=== PATIENT | female | born 1970 | race Caucasian/White ===

== ENCOUNTER → 2016-10-08 | Outpatient (CLI) | payer BC ==
--- NOTE | 2016-10-08 09:17 | BD ---
EXAMINATION TYPE: MG DEXA axial skeleton. DATE OF EXAM: 10/08/2016 8:24 AM COMPARISON: NONE CLINICAL HISTORY: Height: 63.5 Weight: 205 FRAX RISK QUESTIONS: Alcohol (3 or more units per day): no Family History (Parent hip fracture): no Glucocorticoids (More than 3mos): no (Ex: prednisone, prednisolone, methylprednisolone, dexamethasone, and hydrocortisone). History of Fracture in Adulthood: yes Secondary Osteoporosis: 1. Type 1 Diabetes: no 2. Hyperthyroidism: no 3. Menopause before 45: no 4. Malnutrition: no 5. Chronic liver disease: no Rheumatoid Arthritis: no Current Tobacco Use: no RISK FACTORS HISTORY OF: History of Fracture: ankle, first fractured about 24 years ago; history of re-fracture Other Fractures since Age 48: n/a Family History of Osteoporosis: unsure Drink Alcohol: yes, occasionally socially Active: yes Diet low in dairy products/other sources of calcium: no Postmenopausal woman: yes, age 44 partial hysterectomy Take estrogen and/or progesterone medications: no Lost more than 2 inches in height since high school: no Hyperparathyroidism: no Adrenal Insufficiency: no MEDICATIONS: Prednisone or other steroids: no Thyroid Medications: no Osteoporosis Medications: no Additional Medications: blood pressure meds EXAM MEASUREMENTS: Bone mineral densitometry was performed using the [email or web address] System. Bone mineral density as measured about the Lumbar spine is: ----- L1-L4(G/cm2): 1.195 T Score Values are as follows: ----- L2: -0.1 ----- L3: -0.1 ----- L4: 0.3 ----- L1-L4: 0.1 Bone mineral density not previously done at this facility; previous elsewhere Bone mineral density about the R hip (g/cm2): 0.922 Bone mineral density about the L hip (g/cm2): 0.930 T Score values are as follows: -----R Neck: -0.8 -----L Neck: -0.8 -----R Intertrochanter: -0.7 -----L Intertrochanter: -0.8 Bone mineral density not previously done at this facility; previous elsewhere IMPRESSION: Normal (Values between +1 and -1 indicate normal bone mass) Lumbar Spine & Bilateral Hips NOTE: T-SCORE=SD OF THE YOUNG ADULT MEAN.
--- NOTE | 2016-10-09 10:15 | MM ---
Reason for exam: screening (asymptomatic). Last mammogram was performed 3 years and 4 months ago. History: Reductions of both breasts, March 2009. Physical Findings: A clinical breast exam by your physician is recommended on an annual basis and results should be correlated with mammographic findings. MG 3D Screening Mammo W/Cad Bilateral CC and MLO view(s) were taken. Prior study comparison: June 07, 2013, bilateral digital screening mammo w/CAD. April 14, 2012, CAD bilateral diagnostic mammogram. The breast tissue is almost entirely fat. There is no discrete abnormality. No significant changes when compared with prior studies. ASSESSMENT: Negative, BI-RAD 1 RECOMMENDATION: Routine screening mammogram of both breasts in 1 year.
== END | disposition home or self-care (01) ==
LOC: RADMAMWWP 07:37
PROVIDERS: ATTEND Family Medicine
DX: Z12.31 Encounter for screening mammogram for malignant neoplasm of breast (principal)
CPT/HCPCS: 77080; 77052; 77063; G0202

== ENCOUNTER → 2020-04-18 | Outpatient (CLI) | payer BC ==
--- NOTE | 2020-04-18 10:23 | XR ---
EXAMINATION TYPE: XR foot complete bilateral DATE OF EXAM: 04/18/2020 CLINICAL HISTORY: pain TECHNIQUE: Frontal, lateral and oblique images of the bilateral feet are obtained. COMPARISON: None. FINDINGS: There is no acute fracture/dislocation evident. The joint spaces appear within normal dewitt its. The overlying soft tissue appears unremarkable. IMPRESSION: There is no acute fracture or dislocation. ICD 10 NO FRACTURE, INITIAL EVALUATION
== END | disposition home or self-care (01) ==
LOC: RADXRMAIN 09:31
PROVIDERS: ATTEND Family Medicine
DX: M79.671 Pain in right foot (principal); M79.672 Pain in left foot

== ENCOUNTER → 2020-05-04 | Outpatient (CLI) | payer BC ==
--- NOTE | 2020-05-07 09:19 | MM ---
Reason for exam: screening (asymptomatic). Last mammogram was performed 3 years and 7 months ago. History: Family history of breast cancer in sister at age 48. Reductions of both breasts, March 2009. Physical Findings: A clinical breast exam by your physician is recommended on an annual basis and results should be correlated with mammographic findings. MG 3D Screening Mammo W/Cad Bilateral CC and MLO view(s) were taken. Prior study comparison: October 08, 2016, bilateral MG 3d screening mammo w/cad. June 07, 2013, bilateral digital screening mammo w/CAD. There are scattered fibroglandular densities. There are benign appearing round calcifications in the left breast. There is no discrete abnormality. ASSESSMENT: Benign, BI-RAD 2 RECOMMENDATION: Routine screening mammogram of both breasts in 1 year.
== END | disposition home or self-care (01) ==
LOC: RADMAMWWP 07:30
PROVIDERS: ATTEND Family Medicine
DX: Z12.31 Encounter for screening mammogram for malignant neoplasm of breast (principal)
CPT/HCPCS: 77063; 77067

== ENCOUNTER → 2022-04-08 | Outpatient (CLI) | payer BC ==
--- NOTE | 2022-04-08 17:39 | BD ---
EXAMINATION TYPE: Axial Bone Density DATE OF EXAM: 04/08/2022 CLINICAL HISTORY: 51 years year old Female. ICD-10 CODE: N95.1 POST MENOPAUSAL SYMPTOMS Height: 5 FT 3 IN Weight: 220 FRAX RISK QUESTIONS: Alcohol (3 or more units per day): NO Family History (Parent hip fracture): NO Glucocorticoids (More than 3mos): NO (Ex: prednisone, prednisolone, methylprednisolone, dexamethasone, and hydrocortisone). History of Fracture in Adulthood: YES Secondary Osteoporosis: 1. Type 1 Diabetes: NO 2. Hyperthyroidism: NO 3. Menopause before 45: NO 4. Malnutrition: NO 5. Chronic liver disease: NO Rheumatoid Arthritis: NO Current Tobacco Use: NO RISK FACTORS HISTORY OF: Surgery to Spine/Hip(right/left)/Wrist (right/left): NO Family History of Osteoporosis: NO Active: YES Diet low in dairy products/other sources of calcium: NO Postmenopausal woman: YES Take estrogen and/or progesterone medications: NONE Lost more than 2 inches in height since high school: NO Frequent falls: NO Poor Health: GOOD Hyperparathyroidism: NO Adrenal Insufficiency: NO MEDICATIONS: Additional Medications: LISINOPRIL, IBUPROFEN,ADD MAY, ZYRTEC Additional History: EXAM MEASUREMENTS: Bone mineral densitometry was performed using the [employer] System. Bone mineral density as measured about the Lumbar spine is: ----- L1-L4(G/cm2): 1.207 T Score Values are as follows: ----- L1: -0.1 ----- L2: 0.3 ----- L3: 0.1 ----- L4: 0.5 ----- L1-L4: 0.2 Bone mineral density has: INCREASED 2.4 % since study of: 2017 Bone mineral density about the R hip (g/cm2): 0.824 Bone mineral density about the L hip (g/cm2): 0.949 T Score values are as follows: -----R Neck: -1.5 -----L Neck: -0.6 -----R Total: -0.8 -----L Total: -0.7 Bone mineral density has: DECREASED -9.5 % since study of: 2017 FRAX%s: The graph provided illustrates a 10.1 % chance for a major osteoporotic fx and a 0.8 % chance for the hips probability for fx in 10 years time. IMPRESSION: Osteopenia (T Score between -2.5 and -1). There is slightly increased risk of fracture and the patient may be considered for treatment. Re-Screen 2-5 years. NOTE: T-SCORE=SD OF THE YOUNG ADULT MEAN.
--- NOTE | 2022-04-09 08:24 | MM ---
Reason for Exam: Screening (asymptomatic). Last mammogram was performed 2 year(s) and 0 month(s) ago. Patient History: Menarche at age 8. First Full-Term at age 20. Hysterectomy at age 46. 03/2009, Bilateral Reduction. Sister had breast cancer, age 48. Sister tested for BRCA1 outcome was negative. Risk Values: Shanelle 5 year model risk: 2.3%. NCI Lifetime model risk: 17.0%. Prior Study Comparison: 06/07/2013 Bilateral Screening Mammogram, [facility]. 10/08/2016 Bilateral Screening Mammogram, [facility]. 05/04/2020 Bilateral Screening Mammogram, [facility]. Tissue Density: The breast tissue is almost entirely fat. Findings: Analyzed By CAD. Benign-appearing bilateral axillary lymph nodes are redemonstrated. There is no suspicious group of microcalcifications or new suspicious mass in either breast. Overall Assessment: Negative, BI-RAD 1 Management: Screening Mammogram of both breasts in 1 year. A clinical breast exam by your physician is recommended on an annual basis and results should be correlated with mammographic findings. Electronically signed and approved by: Bello Rose M.D.
== END | disposition home or self-care (01) ==
LOC: RADMAMWWP 10:39
PROVIDERS: ATTEND Family Medicine
DX: Z12.31 Encounter for screening mammogram for malignant neoplasm of breast (principal); N95.1 Menopausal and female climacteric states
CPT/HCPCS: 77063; 77067; 77080

== ENCOUNTER → 2022-07-22 | Outpatient (CLI) | payer BC ==
[~2022-07-22] MED LIST: SODIUM CHLORIDE 0.9% 500 ML 500 ML in EMPTY BAG 1 BAG IV PRN; ZOLEDRONIC ACID 5 MG in SODIUM CHLORIDE 0.9% 100 ML IV NR
[2022-07-22 08:18] VITALS: BP 184/104; PULSE 89; RESP 16; TEMP 98.2
== END | disposition home or self-care (01) ==
LOC: PROCWHC3 07:56
PROVIDERS: ATTEND Family Medicine
DX: M81.0 Age-related osteoporosis without current pathological fracture (principal); Z88.2 Allergy status to sulfonamides
CPT/HCPCS: 96365; J3489

== ENCOUNTER 2022-10-27 19:45 | Emergency (ER) | payer BC ==
[2022-10-27] MEDS ORDERED: cloNIDine HCL 0.1 MG TAB PO STA (19:53)
[2022-10-27 19:54] VITALS: RESP 17; TEMP 98.3
--- NOTE | 2022-10-27 19:54 | ED ---
General Adult HPI - General Stated complaint: HTN Time Seen by Provider: 10/27/22 19:54 Source: patient, RN notes reviewed Mode of arrival: ambulatory Limitations: no limitations - History of Present Illness Initial comments: 52-year-old female presents emergency Department chief complaint of hypertension. Patient states she's been struggling with hypertension or last few weeks. Patient states that she cannot she had blood pressure issues when she went to the dentist. She states she's been on lisinopril for last 10 years has been increased from 10-20 mg and now 20-30 mg. Patient states she took this morning her blood pressure remains high her primary care physician and recommended to come emergency department. She does have follow-up appointment on Thursday. Denies chest pain headache dizziness nausea vomiting. Patient states she is a symptomatic. - Related Data Home Medications Medication Instructions Recorded Confirmed lisinopriL [Prinivil] 10 mg PO DAILY 09/30/14 07/22/22 Black Cohosh 1 cap PO DAILY 07/22/22 07/22/22 Calcium Carbonate [Calcium] 11,200 mg PO DAILY 07/22/22 07/22/22 Cetirizine HCl [Zyrtec] 10 mg PO DAILY 07/22/22 07/22/22 Cholecalciferol (Vitamin D3) 5,000 unit PO DAILY 07/22/22 07/22/22 [Vitamin D3 (125 MCG = 5,000 IU)] Dextroamphetamine/Amphetamine 10 mg PO BID 07/22/22 07/22/22 [Adderall] Garlic 1,000 mg PO DAILY 07/22/22 07/22/22 Glucos Sul 2Kcl/MSM/Chond/C/Mn 1 cap PO DAILY 07/22/22 07/22/22 [Glucosamine Chondroitin Cap] Ibuprofen 800 mg PO TID PRN 07/22/22 07/22/22 Allergies Allergy/AdvReac Type Severity Reaction Status Date / Time Sulfa (Sulfonamide Allergy Rash/Hives Verified 07/22/22 08:09 Antibiotics) Review of Systems ROS Statement: Those systems with pertinent positive or pertinent negative responses have been documented in the HPI. ROS Other: All systems not noted in ROS Statement are negative. Past Medical History Past Medical History: Hyperlipidemia, Hypertension, Osteoarthritis (OA), Sleep Apnea/CPAP/BIPAP Additional Past Medical History / Comment(s): OSTEOPENIA. 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 History of Any Multi-Drug Resistant Organisms: None Reported Past Surgical History: Hysterectomy, Tubal Ligation Additional Past Surgical History / Comment(s): right ankle, RIGHT TRIGGER FINGER , right thumb, breast reduction. Additional Past Anesthesia/Blood Transfusion Reaction / Comment(s): EXTREME NAUSEA. Past Psychological History: No Psychological Hx Reported Smoking Status: Former smoker Past Alcohol Use History: Rare Past Drug Use History: None Reported General Exam Limitations: no limitations General appearance: alert, in no apparent distress Head exam: Present: atraumatic, normocephalic, normal inspection Eye exam: Present: normal appearance, PERRL, EOMI. Absent: scleral icterus, conjunctival injection, periorbital swelling ENT exam: Present: normal exam, normal oropharynx, mucous membranes moist Neck exam: Present: normal inspection, full ROM. Absent: tenderness, meningismus, lymphadenopathy Respiratory exam: Present: normal lung sounds bilaterally. Absent: respiratory distress, wheezes, rales, rhonchi, stridor Cardiovascular Exam: Present: regular rate, normal rhythm, normal heart sounds. Absent: systolic murmur, diastolic murmur, rubs, gallop, clicks Course Vital Signs 10/27/22 10/27/22 19:50 20:49 Temperature 98.3 F Pulse Rate 91 86 Respiratory 17 Rate Blood Pressure 193/114 138/86 O2 Sat by Pulse 98 97 Oximetry Medical Decision Making - Medical Decision Making Was pt. sent in by a medical professional or institution (BRIAN Zhong, DIFFUSER OPERATOR, urgent care, hospital, or halfway...) When possible be specific @ -No Did you speak to anyone other than the patient for history (EMS, parent, family, police, friend...)? What history was obtained from this source @ -No Did you review nursing and triage notes (agree or disagree)? Why? @ -I reviewed and agree with nursing and triage notes Were old charts reviewed (outside hosp., previous admission, EMS record, old EKG, old radiological studies, urgent care reports/EKG's, halfway records)? Report findings @ -No old charts were reviewed Differential Diagnosis (chest pain, altered mental status, abdominal pain women, abdominal pain men, vaginal bleeding, weakness, fever, dyspnea, syncope, headache, dizziness, GI bleed, back pain, seizure, CVA, palpatations, mental health)? @ -Hypertension, renal failure, this is is not all inclusive EKG interpreted by me (3pts min.). @ -As above X-rays interpreted by me (1pt min.). @ -None done CT interpreted by me (1pt min.). @ -None done U/S interpreted by me (1pt. min.). @ -None done What testing was considered but not performed or refused? (CT, X-rays, U/S, labs)? Why? @ -None What meds were considered but not given or refused? Why? @ -None Did you discuss the management of the patient with other professionals (professionals i.e. Dr., PA, DIFFUSER OPERATOR, lab, RT, psych nurse, rn social services, skoog operator, teacher, financial services officer, rn field case manager)? Give summary @ -No Was smoking cessation discussed for >3mins.? @ -No Was critical care preformed (if so, how long)? @ -No Were there social determinants of health that impacted care today? How? (Homelessness, low income, unemployed, alcoholism, drug addiction, transportation, low edu. Level, literacy, decrease access to med. care, half-way, rehab)? @ -No Was there de-escalation of care discussed even if they declined (Discuss DNR or withdrawal of care, Hospice)? DNR status @ -No What co-morbidities impacted this encounter? (DM, HTN, Smoking, COPD, CAD, Cancer, CVA, ARF, Chemo, Hep., AIDS, mental health diagnosis, sleep apnea, morbid obesity)? @ -Hypertension Was patient admitted / discharged? Hospital course, mention meds given and route, prescriptions, significant lab abnormalities, going to OR and other pertinent info. @ -Discharge patient's blood pressure is improved with clonidine. Patient is asymptomatic she'll increase her lisinopril to 40 mg and has a follow-up appointment on Thursday. Undiagnosed new problem with uncertain prognosis? @ -No Drug Therapy requiring intensive monitoring for toxicity (Heparin, Nitro, Insulin, Cardizem)? @ -No Were any procedures done? @ -No Diagnosis/symptom? @ -Hypertension Acute, or Chronic, or Acute on Chronic? @ -Acute on chronic Uncomplicated (without systemic symptoms) or Complicated (systemic symptoms)? @ -uncomplicated Side effects of treatment? @ -No Exacerbation, Progression, or Severe Exacerbation? @ -Exacerbation Poses a threat to life or bodily function? How? (Chest pain, USA, GA, pneumonia, PE, COPD, DKA, ARF, appy, cholecystitis, CVA, Diverticulitis, Homicidal, Suicidal, threat to staff... and all critical care pts) @ -No - Lab Data Result diagrams: 10/27/22 20:35 10/27/22 20:35 Lab Results 10/27/22 10/27/22 Range/Units 20:35 20:35 WBC 8.5 (3.8-10.6) k/uL RBC 4.22 (3.80-5.40) m/uL Hgb 12.2 (11.4-16.0) gm/dL Hct 36.4 (34.0-46.0) % MCV 86.2 (80.0-100.0) fL MCH 28.8 (25.0-35.0) pg MCHC 33.4 (31.0-37.0) g/dL RDW 12.7 (11.5-15.5) % Plt Count 340 (150-450) k/uL MPV 7.9 Neutrophils % 64 % Lymphocytes % 25 % Monocytes % 6 % Eosinophils % 3 % Basophils % 1 % Neutrophils # 5.4 (1.3-7.7) k/uL Lymphocytes # 2.1 (1.0-4.8) k/uL Monocytes # 0.5 (0-1.0) k/uL Eosinophils # 0.3 (0-0.7) k/uL Basophils # 0.1 (0-0.2) k/uL Sodium 140 (137-145) mmol/L Potassium 3.9 (3.5-5.1) mmol/L Chloride 106 (98-107) mmol/L Carbon Dioxide 29 (22-30) mmol/L Anion Gap 5 mmol/L BUN 15 (7-17) mg/dL Creatinine 0.59 (0.52-1.04) mg/dL Est GFR (CKD-EPI)AfAm >90 (>60 ml/min/1.73 sqM) Est GFR (CKD-EPI)NonAf >90 (>60 ml/min/1.73 sqM) Glucose 113 H (74-99) mg/dL Calcium 8.4 (8.4-10.2) mg/dL Total Bilirubin 0.3 (0.2-1.3) mg/dL AST 19 (14-36) U/L ALT 22 (4-34) U/L Alkaline Phosphatase 97 (38-126) U/L Total Protein 6.3 (6.3-8.2) g/dL Albumin 3.6 (3.5-5.0) g/dL Disposition Clinical Impression: Hypertension Disposition: HOME SELF-CARE Condition: Stable Instructions (If sedation given, give patient instructions): Hypertension (ED) Additional Instructions: Please return to the Emergency Department if symptoms worsen or any other concerns. Is patient prescribed a controlled substance at d/c from ED?: No Referrals: Puma Del Rosario DO [Primary Care Provider] - 1-2 days Time of Disposition: 21:32
[2022-10-27 20:51] VITALS: BP 138/86; PULSE 86
[2022-10-27 21:17] LABS: Basophils # (A) 0.1 k/uL (0-0.2); Basophils % (A) 1 %; Eosinophils # (A) 0.3 k/uL (0-0.7); Eosinophils % (A) 3 %; HCT 36.4 % (34.0-46.0); HGB 12.2 gm/dL (11.4-16.0); Lymphocytes # (A) 2.1 k/uL (1.0-4.8); Lymphocytes % (A) 25 %; MCH 28.8 pg (25.0-35.0); MCHC 33.4 g/dL (31.0-37.0); MCV 86.2 fL (80.0-100.0); Mean Platelet Volume 7.9; Monocytes # (A) 0.5 k/uL (0-1.0); Monocytes % (A) 6 %; Neutrophils # (A) 5.4 k/uL (1.3-7.7); Neutrophils % (A) 64 %; Platelet Count 340 k/uL (150-450); RBC 4.22 m/uL (3.80-5.40); RDW 12.7 % (11.5-15.5); WBC 8.5 k/uL (3.8-10.6)
[2022-10-27 21:24] LABS: ALT 22 U/L (4-34); AST 19 U/L (14-36); African American GFR (CKD) >90 (>60 ml/min/1.73 sqM); Albumin 3.6 g/dL (3.5-5.0); Alkaline Phosphatase 97 U/L (38-126); Anion Gap 5 mmol/L; Blood Urea Nitrogen 15 mg/dL (7-17); Calcium 8.4 mg/dL (8.4-10.2); Carbon Dioxide 29 mmol/L (22-30); Chloride 106 mmol/L (98-107); Glucose 113 mg/dL (74-99); Non-African American GFR(CKD) >90 (>60 ml/min/1.73 sqM); Potassium 3.9 mmol/L (3.5-5.1); Sodium 140 mmol/L (137-145); Total Bilirubin 0.3 mg/dL (0.2-1.3); Total Protein 6.3 g/dL (6.3-8.2)
== END 2022-10-27 22:40 | disposition home or self-care (01) ==
LOC: EC 19:45
DX: I10 Essential (primary) hypertension (principal); G47.30 Sleep apnea, unspecified; Z88.2 Allergy status to sulfonamides; Z87.891 Personal history of nicotine dependence
CPT/HCPCS: 36415; 80053; 85025; 93005; 99283

== ENCOUNTER → 2023-01-23 | Outpatient (CLI) | payer BC ==
--- NOTE | 2023-01-23 10:05 | XR ---
Exam: Lumbosacral spine 5 views Date: 01/23/2023 Comparison: None Clinical History: Back pain Technique: Multiple views of the lumbosacral spine were obtained per protocol. Findings: There is no significant lateral curvature of the lumbar spine. There is no asymmetric widening of the sacroiliac joints. The visualized sacral arcuate lines are symmetric and contiguous. Vertebral body heights and alignment are within normal limits there is multilevel disc space narrowing, most signifi cant within the lower lumbar spine. There is also disc space narrowing at T11-12. There is multilevel facet arthropathy, most significant within the lower lumbar spine. There are no obvious pars defects . Impression: Multilevel lumbar spondylosis without compression deformity or spondylolisthesis.
== END | disposition home or self-care (01) ==
LOC: RADXRMAIN 09:33
PROVIDERS: ATTEND Family Medicine
DX: M47.816 Spondylosis without myelopathy or radiculopathy, lumbar region (principal); G89.29 Other chronic pain
CPT/HCPCS: 72110

== ENCOUNTER → 2023-02-18 | Outpatient (CLI) | payer BC ==
--- NOTE | 2023-02-18 18:00 | MR ---
EXAMINATION TYPE: MR lumbar spine wo con DATE OF EXAM: 02/18/2023 COMPARISON: None HISTORY: Low back pain into left buttocks CONTRAST: 0 mL intravenous Gadavist. TECHNIQUE: Multiplanar, multisequence images of the lumbar spine were acquired. FINDINGS: L5-S1: Mild broad-based disc bulge with mild anterior thecal sac compression. This may have contact w ith the right S1 nerve root. Correlate with the radicular symptoms. No AP spinal canal stenosis is pr esent. Facet hypertrophy is present. Mild foraminal narrowing is present. L4-L5: No significant disc bulge or disc herniation. No spinal canal stenosis. No foraminal stenosi s. . L3-L4: There is a small central protrusion with mild anterior thecal sac contact. No AP spinal canal stenosis present. Neural foramen are patent. L2-L3: No significant disc bulge or disc herniation. No spinal canal stenosis. No foraminal stenosi s. . L1-L2: No significant disc bulge or disc herniation. No spinal canal stenosis. No foraminal stenosi s. . T12-L1: No significant disc bulge or disc herniation. No spinal canal stenosis. No foraminal stenos is. . IMPRESSION: 1. Small central protrusion with anterior thecal sac contact at the L3-4 level. No spinal canal steno sis present. 2. Mild broad-based disc bulge L5-S1 with anterior thecal sac contact. No stenosis is present. Correl ate with the right S1 radicular symptoms.
== END | disposition home or self-care (01) ==
LOC: RADMRIMAIN 06:51
PROVIDERS: ATTEND Nurse Practitioner Family
DX: M47.26 Other spondylosis with radiculopathy, lumbar region (principal); M51.16 Intervertebral disc disorders with radiculopathy, lumbar region
CPT/HCPCS: 72148

== ENCOUNTER → 2023-03-09 | Outpatient (CLI) | payer BC ==
[2023-03-09 09:30] VITALS: BP 155/89; PULSE 69; RESP 18; TEMP 97.7
--- NOTE | 2023-03-11 11:12 | P.PAINPG ---
PQRS Measure Charge Sheet Comment: HISTORY OF PRESENT ILLNESS: 52 yr old female as a referral from [facility] presents today w severe and chronic secondary to for evaluation. Pt states pain level is provoked at 8 /10 in intensity, constant, localized in the L lower lubmar spine, sharp, stabbing in character w shooting pain towards the LLE. Pain is provoked by over activity, walking for periods of 20 min or more. Pain is alleviated by PT x 4 wks which she is currently in, massage therapy as needed w last visit 6 wks ago, chiropractic treatments monthly x 2 yrs, heat, ice, medications (Ibu), topical, repositioning and rest. PMH: Hyperlipidemia, HTN, OA, ABHI PSH: Hysterectomy, Tubal Ligation, R Ankle Surgery, R Trigger Finger Release, R Thumb Surgery, Breast Reduction SH: Former tobacco user, Rare ETOH use, No illicit drug use FH: Non contributory All: See list Meds: See list REVIEW OF ORGAN SYSTEMS: CONSTITUTIONAL: No fevers or chills. No recent weight loss. NEUROLOGICAL: + numbness and tingling along the distal extremities. No seizure disorders or headaches. MUSCULOSKELETAL: + pain PSYCHIATRIC: Denies current depression or suicidal thoughts. Physical Examinations : Constitutional : Cooperative , not in acute distress . Neurologic : Cranial nerve II to XII intact. No focal neurological deficits. Psychiatric : alert & oriented x 3. Matching mood & appropriate affect. Judgment & insight intact. Musculoskeletal : Cervical Spine Motor strength in the deltoid and biceps: Normal right side. Normal Left side Motor strength biceps and the wrist extensors: Normal right side . Normal left side Motor strength in the triceps muscle: Normal right side. Normal left side Deep tendon reflexes: Normal at the biceps. Normal at Brachioradialis. Normal at triceps Vertebral body tenderness to deep palpation over Cervical facet loading test: positive bilaterally Spurling test: positive bilaterally Neck distraction test: positive bilaterally Alton sign: positive bilaterally Lumbar spine Motor strength lower extremities ,thigh and legs 5/5 Right side , 5/5 Left side Deep tendon reflexes : Normal Knee Jerk. Normal Ankle Jerk Vertebral body tenderness over L5 Wynne Test positive Lumbar facet Loading Test: positive Right / positive Left Range of motion of the lumbar spine Flexion 30 degrees, extension 10 degrees Straight Leg Raise test: Left/ Right positive at <45 degrees Tobi test: positive right / positive left. Severe tenderness over the Sacroiliac joint on the Right / Left sides Gaenslen test: positive bilaterally Seated flexion test: positive bilaterally. Sacral spine : Severe tenderness over the Sacroiliac joint: right side / left side Range of motion: Flexion of the lumbar spine <60 degrees Range of motion: Extension of the lumbar spine <20 degrees Gaenslen's Test positive Inocente's Test positive Tobi test: positive right side / left side Thigh Thrust Test Sacral Thrust Test Imaging: MRI non contrast of the lumbar spine from 02/18/23 reveiewed Assessment/ Plan : Lumbar DDD Recommendation of CHRISTIANA R TFESI L5-S1 #1. May need a series of injections for optimal pain rleief. Risks, benefits of procedure discussed and patient verbalized understanding. Admits to aspirin or anti- coagulant use or medical history of diabetes. Protocol for discontinuation/ continuation of medications shonda procedure discussed. Minimal anesthesia provided, if clinically indicated, consisting of Versed and Fentanyl. All questions answered. I have spent greater than 30 minutes on patient care today. Dr Gonzales was available by phone for the evaluation of this patient. The time was used to review the medical records including relevant urine studies and Prescription history (MAPs), review of the available imaging, evaluation and examination of the patient, coordination of care with the medical staff and if applicable referring physicians, as well as creation of the medical record PQRS Narrative: Smoking Status Never smoker Home Medications: Ambulatory Orders lisinopriL [Prinivil] 10 mg PO DAILY 09/30/14 Black Cohosh 1 cap PO DAILY 07/22/22 Calcium Carbonate [Calcium] 11,200 mg PO DAILY 07/22/22 Cetirizine HCl [Zyrtec] 10 mg PO DAILY 07/22/22 Cholecalciferol (Vitamin D3) [Vitamin D3 (125 MCG = 5,000 IU)] 5,000 unit PO DAILY 07/22/22 Dextroamphetamine/Amphetamine [Adderall] 10 mg PO BID 07/22/22 Garlic 1,000 mg PO DAILY 07/22/22 Glucos Sul 2Kcl/MSM/Chond/C/Mn [Glucosamine Chondroitin Cap] 1 cap PO DAILY 07/22/22 Ibuprofen 800 mg PO TID PRN 07/22/22 Controlled Substance Measures - Controlled Substance Measures Is patient prescribed a controlled substance at discharge?: No
== END ==
LOC: PNWHC3 07:38
PROVIDERS: ATTEND Specialist
DX: M51.16 Intervertebral disc disorders with radiculopathy, lumbar region (principal); E78.5 Hyperlipidemia, unspecified; I10 Essential (primary) hypertension; M19.90 Unspecified osteoarthritis, unspecified site; G47.33 Obstructive sleep apnea (adult) (pediatric); Z87.891 Personal history of nicotine dependence; M46.1 Sacroiliitis, not elsewhere classified; M53.3 Sacrococcygeal disorders, not elsewhere classified; M47.26 Other spondylosis with radiculopathy, lumbar region; Z88.2 Allergy status to sulfonamides
CPT/HCPCS: 99211

== ENCOUNTER → 2023-03-18 | Outpatient (CLI) | payer BC ==
--- NOTE | 2023-03-18 13:51 | P.SLEEP ---
History of Present Illness DATE: 03/18/2023 CONSULTATION/NEW PATIENT EVALUATION HISTORY OF PRESENT ILLNESS/SLEEP-WAKE EVALUATION: 52-year-old lady had been ev aluated in the sleep center for obstructive sleep apnea hypopnea syndrome. Patient has history of obstructive sleep apnea hypopnea syndrome for about 6 years. She continued to use sure CPAP equipment every night for the whole night. I checked CPAP unit. Range of the pressure 5-15, average 9.9 cm of water. Usage is 100% of nights, average 8.9 hours per night. Leak is 5 L/m which is normal. Apnea-hypopnea index is 1.2, which is normal. SLEEP SCHEDULE: Usually sleep schedule from 9 PM to 6 AM on weekdays and from 10 PM to 7 AM on weekend. FALLING ASLEEP: Problems with falling asleep. DURING SLEEP: No snoring, or sleep apneas while patient using CPAP equipment. Patient may wake up from sleep up to 2 times use restroom. No history of hypnogogical hallucinations, sleep paralysis, or cataplexy. DURING THE DAY/WAKE STATE: Patient denied any significant excessive daytime sleepiness. [place] sleepiness scale is 4, which is normal. Patient usually doesn't take any naps. PAST MEDICAL HISTORY: Hypertension, back problems, sinuses problems. PAST SURGICAL HISTORY: Partial hysterectomy, breast reduction, carpal tunnel syndrome surgeries, left ankle plate for fracture. MEDICATIONS: Micardis 80 mg once a day, Coreg 12.5 mg once a day, PMI in, spironolactone 50 mg once a day, meloxicam 7.5 mg once a day. SOCIAL HISTORY: Negative for smoking, alcohol consumption occasional. FAMILY HISTORY: Hypertension, stroke, diabetes, sleep apnea, mental illness. REVIEW OF SYSTEMS: Presently no snoring with CPAP, no sleepiness during the day. No fevers. No double vision. No recent chest pain. No shortness of breath. No abdominal pain. No bleeding episodes. No blood in urine. No seizure episodes. PHYSICAL EXAMINATION: GENERAL: A pleasant patient without any distress. VITAL SIGNS: BP 182/99, HR 70, RR 18, weight 239.8 pounds, height 5 foot three quarters inches, body mass index 46.9. HEENT: PERRLA, EOMI. Evaluation of oropharynx showed tongue protrudes midline, low position of soft palate Mallampati 4. NECK: Supple. No JVD. Thyroid is not palpable. 18 inches in circumference. LUNGS: Clear to percussion and to auscultation. Good air exchange. No wheezing or rhonchi. HEART: S1, S2 regular. No murmurs, gallops or rubs. ABDOMEN: Soft and nontender. Bowel sounds are present. No organomegaly appreciated. EXTREMITIES: No clubbing or cyanosis. ACADEMIC SUPPORT ASSISTANT: Awake, alert, and oriented x3. Cranial nerves 2 to 7 intact. There is no fasciculation or atrophy noted. No focal deficits observed. ASSESSMENT: 1. Obstructive sleep apnea-hypopnea syndrome. Patient demonstrated 100% c ompliance with treatment, normal respiration on CPAP. 2. Obesity, BMI 46. 3. Hypertension. 4. History of seasonal ALLERGY. 5 low back problems. 6 . History of episodes of out of dream behavioral in the past. No out of dream movements while on treatment with CPAP. 7. Status post partial hysterectomy. 8. Status post breast reduction. 9 . Status post surgical treatment for carpal tunnel syndrome. PLAN: 1. Patient will continue treatment with CPAP every night for the whole night. 2. Prescription full necessary CPAP supplies 3. Preferable position during sleep on the side. 4. No driving if patient feels any sleepiness. Patient is aware of civil and criminal liability for unsafe driving. 5. Sleep hygiene with regular sleep time for at least 7.5-8 hours. 6. Watching and losing weight. 7. For at least in 6 months. Thank you very much for referring this patient for consultation. Sincerely, Tono Torres MD, PhD, FAASM. Diplomat of [place] [employer], Sleep Medicine Board by [place] [employer] [place] [employer] [facility] Past Medical History Past Medical History: Hyperlipidemia, Hypertension, Osteoarthritis (OA), Sleep Apnea/CPAP/BIPAP Additional Past Medical History / Comment(s): OSTEOPENIA. 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 History of Any Multi-Drug Resistant Organisms: None Reported Past Surgical History: Hysterectomy, Tubal Ligation Additional Past Surgical History / Comment(s): right ankle, RIGHT TRIGGER FINGER, right thumb, breast reduction. Additional Past Anesthesia/Blood Transfusion Reaction / Comment(s): EXTREME NAUSEA. Smoking Status: Former smoker Medications and Allergies Home Medications Medication Instructions Recorded Confirmed Type lisinopriL [Prinivil] 10 mg PO DAILY 09/30/14 03/09/23 History Black Cohosh 1 cap PO DAILY 07/22/22 03/09/23 History Calcium Carbonate [Calcium] 11,200 mg PO DAILY 07/22/22 03/09/23 History Cetirizine HCl [Zyrtec] 10 mg PO DAILY 07/22/22 03/09/23 History Cholecalciferol (Vitamin D3) 5,000 unit PO DAILY 07/22/22 03/09/23 History [Vitamin D3 (125 MCG = 5,000 IU)] Dextroamphetamine/Amphetamine 10 mg PO BID 07/22/22 03/09/23 History [Adderall] Garlic 1,000 mg PO DAILY 07/22/22 03/09/23 History Glucos Sul 2Kcl/MSM/Chond/C/Mn 1 cap PO DAILY 07/22/22 03/09/23 History [Glucosamine Chondroitin Cap] Ibuprofen 800 mg PO TID PRN 07/22/22 03/09/23 History Allergies Allergy/AdvReac Type Severity Reaction Status Date / Time Sulfa (Sulfonamide Allergy Rash/Hives Verified 03/09/23 08:06 Antibiotics) Sleep Note - Sleep Note Sleep Note: Temperature: Pulse Rate: Respiratory Rate: Blood Pressure: SpO2: Height: Weight: BMI: Neck Circumference:
== END ==
LOC: 3 N SLEEP 13:00
PROVIDERS: ATTEND Internal Medicine
DX: G47.33 Obstructive sleep apnea (adult) (pediatric) (principal); E66.9 Obesity, unspecified; Z68.42 Body mass index [BMI] 45.0-49.9, adult; I10 Essential (primary) hypertension; M54.50 Low back pain, unspecified; Z99.89 Dependence on other enabling machines and devices; Z98.890 Other specified postprocedural states; G56.03 Carpal tunnel syndrome, bilateral upper limbs; Z88.2 Allergy status to sulfonamides
CPT/HCPCS: 99211

== ENCOUNTER 2023-04-09 07:13 | Day surgery (SDC) | payer BC ==
[2023-04-03 10:21] VITALS: BMI 40.2
[~2023-04-09 07:13] MED LIST changes: +LACTATED RINGERS 1,000 ML IV SCH; -SODIUM CHLORIDE 0.9% 500 ML 500 ML in EMPTY BAG 1 BAG IV PRN; -ZOLEDRONIC ACID 5 MG in SODIUM CHLORIDE 0.9% 100 ML IV NR
[2023-04-09 07:23] VITALS: RESP 16; TEMP 98
[2023-04-09] MEDS ORDERED: methylPREDNISolone ACETATE 40 MG/ML 1 ML VIAL ONE (07:33)
[2023-04-09] MEDS ORDERED: IOPAMIDOL M200 10 ML VIAL ONE (07:33)
--- NOTE | 2023-04-09 07:49 | P.PCN ---
Date of Procedure: 04/09/23 Description of Procedure: PREOPERATIVE DIAGNOSIS: Lumbar radiculopathy POSTOPERATIVE DIAGNOSIS: Lumbar radiculopathy PROCEDURES: 1. Right-sided L5-S1 Transforaminal epidural steroid injection under fluoroscopic guidance 2. Lumbar epidurogram. SURGEON: Salena Desai TRANSIT PROOF MACHINE OPERATOR: None ANESTHESIA: Local , IV sedation : None EBL: None. PROCEDURE INDICATIONS: This patient with a history of lumbar radiculopathy. Failed with conservative therapy came here for intervention procedure manage ment. So came here for the intervention procedure . PROCEDURE DESCRIPTION: The patient was seen and identified in the preoperative area. Risks, benefits, complications, and alternatives were discussed with the patient. The patient agreed to proceed with the procedure and signed the consent. IV was started, and vital signs were stable. Patient was taken to the OR and time out was completed. The patient was placed in the prone position on procedure table and a pillow was placed under the abdomen to reduce lumbar lordosis. The lumbosacral area was prepped with ChloraPrep and draped in the usual sterile fashion. Critical pause was taken. Vital signs were closely monitored during the procedure. Using oblique fluoroscopy, the chin of the Francisco dog at the right side L5 and the skin and deeper tissues just below was localized with 1% lidocaine. Subsequently, a 22-gauge 5- spinal needle was advanced under a tunneled view fluoroscopic guidance just underneath the chin of the Francisco dog at left L5. Under lateral fluoroscopy, the needle was then advanced to the posterior border of the L5 interforaminal space. After negative aspiration of CSF and blood and with no paresthesias, 1 mL of [id number] dye was injected good epidurogram and outlining of the L5 nerve root. After negative aspiration of CSF, blood and with no paresthesia 3 mL of block solution containing 80 MG of Depo-Medrol , mixed with 1 mL of normal saline preservative-free was injected. Needle was removed intact. Skin was cleansed, and bandages were applied. COMPLICATIONS: None. DISPOSITION / PLANS: The patient was placed in a supine position and transferred to the recovery area in a stable condition for observation. There was no evidence of lower extremity motor or sensory deficit after the procedure. Patient was discharged from the recovery room after meeting discharge criteria. Home discharge instructions were given to the patient by the staff. The patient was reexamined prior to discharge. Patient can follow up with the pain clinic in 4 weeks duration.
[2023-04-09 07:58] VITALS: BP 112/75; PULSE 68
[2023-04-09] MEDS ORDERED: LACTATED RINGERS 1,000 ML IV SCH (08:00)
--- NOTE | 2023-04-09 08:20 | FL ---
Intraoperative/procedural fluoroscopic services were provided for lumbar epidural steroid injection. Total fluoroscopy time is 6.9 seconds with a total of 2 submitted images to PACS. Total DAP 0.75071 m Gym2. Please see the operative note for further details.
== END 2023-04-09 08:11 | disposition home or self-care (01) ==
LOC: ORPAIN 07:13
DX: M54.16 Radiculopathy, lumbar region (principal); M46.1 Sacroiliitis, not elsewhere classified; I10 Essential (primary) hypertension; M19.90 Unspecified osteoarthritis, unspecified site; E66.01 Morbid (severe) obesity due to excess calories; Z68.41 Body mass index [BMI] 40.0-44.9, adult; Z88.2 Allergy status to sulfonamides; Z79.1 Long term (current) use of non-steroidal anti-inflammatories (NSAID); Z79.899 Other long term (current) drug therapy
CPT/HCPCS: 64483; J1030; Q9966

== ENCOUNTER → 2023-04-22 | Outpatient (CLI) | payer BC ==
--- NOTE | 2023-04-23 08:31 | MM ---
Reason for Exam: Screening (asymptomatic). Last screening mammogram was performed 12 month(s) ago. Patient History: Menarche at age 8. First Full-Term at age 20. Hysterectomy at age 46. Postmenopausal. 03/2009, Bilateral Reduction. Sister had breast cancer, age 48. Sister tested for BRCA1 outcome was negative. Risk Values: Shanelle 5 year model risk: 2.4%. NCI Lifetime model risk: 16.8%. Prior Study Comparison: 10/08/2016 Bilateral Screening Mammogram, [facility]. 05/04/2020 Bilateral Screening Mammogram, [facility]. 04/08/2022 Bilateral MG 3D screening mammo w/cad, [facility]. Tissue Density: The breast tissue is almost entirely fat. Findings: Analyzed By CAD. There is no suspicious group of microcalcifications or new suspicious mass in either breast. Overall Assessment: Negative, BI-RAD 1 Management: Screening Mammogram of both breasts in 1 year. . Patient should continue monthly self-breast exams. A clinical breast exam by your physician is recommended on an annual basis. This exam should not preclude additional follow-up of suspicious palpable abnormalities. Note on Shanelle scores and lifetime risk: 1. A Shanelle score greater than 3% is considered moderate risk. If this is the case, consider specialist referral to assess eligibility for a risk reducing agent. 2. If overall lifetime risk for the development of breast cancer is 20% or higher, the patient may qualify for future screening with alternating mammogram and breast MRI. Electronically signed and approved by: Dung Lackey M.D. Radiologis
== END | disposition home or self-care (01) ==
LOC: RADMAMWWP 08:44
PROVIDERS: ATTEND Family Medicine
DX: Z12.31 Encounter for screening mammogram for malignant neoplasm of breast (principal); Z80.3 Family history of malignant neoplasm of breast; Z78.0 Asymptomatic menopausal state
CPT/HCPCS: 77063; 77067

== ENCOUNTER → 2023-05-07 | Outpatient (CLI) | payer BC ==
[2023-05-07 09:48] VITALS: BP 147/88; PULSE 64; RESP 15; TEMP 98.3
--- NOTE | 2023-05-07 14:48 | P.PAINPG ---
PQRS Measure Charge Sheet Comment: HISTORY OF PRESENT ILLNESS: 52 yr old female presents today w severe and chronic LBP secondary to DDD, spondylosis and facet arthropathy without myelopathy for evaluation s/p R TFESI L5-S1 #1. Pt states she experienced 80 % pain relief x 4 wks s/p procedure. Pt states pain level is provoked at 8 /10 in intensity, constant, localized in the L lower lumbar spine, sharp, stabbing in character w shooting pain towards the L hip. Pain is provoked by over activity, walking for periods of 20 min or more. Pain is alleviated by PT x 4 wks which she is currently in, massage therapy as needed w last visit 6 wks ago, chiropractic treatments monthly x 2 yrs, heat, ice, medications (Ibu), topical, repositioning and rest. Oswestry axial pain score of 11. Interventional procedures include R TFESI L5-S1 #1 Medications include Ibu REVIEW OF ORGAN SYSTEMS: CONSTITUTIONAL: No fevers or chills. No recent weight loss. NEUROLOGICAL: + numbness and tingling along the distal extremities. No seizure disorders or headaches. MUSCULOSKELETAL: + pain PSYCHIATRIC: Denies current depression or suicidal thoughts. Physical Examinations : Constitutional : Cooperative , not in acute distress . Neurologic : Cranial nerve II to XII intact. No focal neur ological deficits. Psychiatric : alert & oriented x 3. Matching mood & appropriate affect. Judgment & insight intact. Musculoskeletal : Cervical Spine Motor strength in the deltoid and biceps: Normal right side. Normal Left side Motor strength biceps and the wrist extensors: Normal right side . Normal left side Motor strength in the triceps muscle: Normal right side. Normal left side Deep tendon reflexes: Normal at the biceps. Normal at Brachioradialis. Normal at triceps Vertebral body tenderness to deep palp ation over Cervical facet loading test: positive bilaterally Spurling test: positive bilaterally Neck distraction test: positive bilaterally Alton sign: positive bilaterally Lumbar spine Motor strength lower extremities ,thigh and legs 5/5 Right side , 5/5 Left side Deep tendon reflexes : Normal Knee Jerk. Normal Ankle Jerk Vertebral body tenderness over L5 Wynne Test positive Lumbar facet Loading Test: positive Right / positive Left Range of motion of the lumbar spine Flexion 30 degrees, extension 10 degrees Straight Leg Raise test: Left/ Right positive at <45 degrees Tobi test: positive right / positive left. Severe tenderness over the Sacroiliac joint on the Right / Left sides Gaenslen test: positive bilaterally Seated flexion test: positive bilaterally. Sacral spine : Severe tenderness over the Sacroiliac joint: right side / left side Range of motion: Flexion of the lumbar spine <60 degrees Range of motion: Extension of the lumbar spine <20 degrees Gaenslen's Test positive Inocente's Test positive Tobi test: positive right side / left side Thigh Thrust Test Sacral Thrust Test Imaging: MRI non contrast of the lumbar spine from 02/18/23 reviewed Assessment/ Plan : Lumbar DDD Recommendation of CHRISTIANA L5-S1 #2. May need a series of injections for optimal pain rleief. Risks, benefits of procedure discussed and patient verbalized understanding. Admits to aspirin or anti- coagulant use or medical history of diabetes. Protocol for discontinuation/ continuation of medications shonda procedure discussed. Minimal anesthesia provided, if clinically indicated, consisting of Versed and Fentanyl. All questions answered. I have spent greater than 30 minutes on patient care today. Dr Gonzales was available by phone for the evaluation of this patient. The time was used to review the medical records including relevant urine studies and Prescription history (MAPs), review of the available imaging, evaluation and examination of the patient, coordination of care with the medical staff and if applicable referring physicians, as well as creation of the medical record PQRS Narrative: Smoking Status Never smoker Hx Alcohol Use (MH) No Home Medications: Ambulatory Orders Calcium Carbonate [Calcium] 11,200 mg PO DAILY 07/22/22 Cetirizine HCl [Zyrtec] 10 mg PO DAILY 07/22/22 Cholecalciferol (Vitamin D3) [Vitamin D3 (125 MCG = 5,000 IU)] 5,000 unit PO DAILY 07/22/22 Garlic 1,000 mg PO DAILY 07/22/22 Glucos Sul 2Kcl/MSM/Chond/C/Mn [Glucosamine Chondroitin Cap] 1 cap PO DAILY 07/22/22 Cyclobenzaprine [Flexeril] 5 mg PO HS 04/03/23 Estrogens, Conjugated [Premarin] 0.3 mg PO HS 04/03/23 Ibuprofen [Motrin Ib] 600 - 800 mg PO Q8H PRN 04/03/23 Telmisartan [Micardis] 80 mg PO DAILY 04/03/23 carvediloL [Coreg] 6.25 mg PO DAILY 04/03/23 carvediloL [Coreg] 12.5 mg PO DAILY 04/03/23 Controlled Substance Measures - Controlled Substance Measures Is patient prescribed a controlled substance at discharge?: No
== END ==
LOC: PNWHC3 08:15
PROVIDERS: ATTEND Specialist
DX: M51.36 Other intervertebral disc degeneration, lumbar region (principal); Z88.2 Allergy status to sulfonamides
CPT/HCPCS: 99211

== ENCOUNTER → 2023-05-28 | Day surgery (SDC) | payer BC ==
[2023-05-22 13:26] VITALS: BMI 42.4
[~2023-05-28] MED LIST changes: +IOPAMIDOL M200 10 ML VIAL ONE; +ROPIVACAINE 5MG/ML 20ML VIAL ONE; +TRIAMCINOLONE ACETONIDE 40 MG/ML 1 ML VIAL ONE
[2023-05-28 10:34] VITALS: RESP 16; TEMP 97.3
--- NOTE | 2023-05-28 11:05 | P.PCN ---
Date of Procedure: 05/28/23 Surgeon: Jim Lanier Pathology: none sent Condition: stable Disposition: PACU Description of Procedure: PREOPERATIVE DIAGNOSIS: 1-Lumbar radiculopathy 2- Lumber Degenerative Disc Diseases. POSTOPERATIVE DIAGNOSIS: 1-Lumbar radiculopathy. 2-Lumbar Degenerative Disc Diseases PROCEDURE 1. Lumbar epidural steroid injection under fluoroscopic guidance at the L5-S1 level. 2. Lumbar epidurogram. ANESTHESIA: Local with 1% lidocaine EBL: Minimal PROCEDURE INDICATION: The patient with low back pain and radiculitis symptoms unresponsive to conservative treatment. Fluoroscopy was used to optimize visualization of the needle placement and to maximize safety. PROCEDURE DESCRIPTION / TECHNIQUE: The patient was seen and identified in the preoperative area. Risks, benefits, complications including but not limited to infections ,bleeding ,allergic reaction to the medications ,nerve damage and not complete pain relief , and alternatives were discussed with the patient. The patient agreed to proceed with the procedure and signed the consent. IV was started, and vital signs were stable. Patient was taken to the OR and time out was completed. The patient was placed in the prone position on procedure table and a pillow was placed under the abdomen to reduce lumbar lordosis. The lumbosacral area was prepped and draped in the usual sterile fashion with ChloraPrep.Patient was closely monitored during the procedure. Conscious sedation was used during the procedure to decrease patients anxiety. Vital signs were monitered during the entire procedure. Using anterior-posterior fluoroscopy, the [id number] space was identified and the skin over this site was marked and then infiltrated with 1% lidocaine subcutaneously. Subsequently, a 20-gauge Tuohy epidural needle was inserted and advanced toward the epidural space using the Loss of resistance to air technique and guided by AP and lateral fluoroscopy. The correct needle position in the epidural space was verified with the injection of 1 mL of the water soluble contrast dye Omnipaque 180 contrast and observing an excellent epidurogram with the epidural spread of the dye, after negative aspiration for blood and CSF and in the absence of paresthesias. Again after negative aspiration, a 7 ml mixture containing 40 mg of Kenalog and 5 ml of preservative free Normal Saline, and 2 ml of preservative free Ropivacaine 0.5% solution was injected and a washout of epidurogram was seen. Needle was withdrawn intact, skin was cleansed, and bandages were applied. patient tolerated procedure well and was transferred to PACU in stable condition.A copy of the needle placement picture was saved to the fluoroscopy machine. COMPLICATIONS: None
[2023-05-28 11:19] VITALS: BP 142/82; PULSE 82
--- NOTE | 2023-05-28 11:19 | FL ---
Fluoroscopy History: Lumbar Epid Inj Lumbar epid inj 11 sec fluoro time 0.07441 DAP
== END ==
LOC: ORPAIN 09:08
PROVIDERS: ATTEND Anesthesiology
DX: M51.16 Intervertebral disc disorders with radiculopathy, lumbar region (principal); I10 Essential (primary) hypertension; G47.33 Obstructive sleep apnea (adult) (pediatric); E66.01 Morbid (severe) obesity due to excess calories
CPT/HCPCS: 62323; J3301; Q9966; J2795

== ENCOUNTER → 2023-06-25 | Outpatient (CLI) | payer BC ==
[2023-06-25 09:51] VITALS: BP 163/85; PULSE 75; RESP 16; TEMP 97
--- NOTE | 2023-06-25 12:32 | P.PAINPG ---
PQRS Measure Charge Sheet Comment: HISTORY OF PRESENT ILLNESS: 52 yr old female presents today w severe and chronic LBP secondary to DDD, spondylosis and facet arthropathy without myelopathy for evaluation s/p R TFESI L5-S1 #2. Pt states she experienced 75 % pain relief x 4 wks s/p procedure. Pt states pain level is provoked at 3 /10 in intensity, constant, localized in the L lower lumbar spine, sharp, stabbing in character w shooting pain towards the L hip. Pain is provoked by over activity, walking for periods of 20 min or more. Pain is alleviated by PT x 6 wks in Apr 2023, massage therapy as needed w last visit Apr 2023, chiropractic treatments monthly x 2 yrs, heat, ice, medications, topical, sitting, repositioning and rest. Pt will undergo L hip surgery Jul 21 2023. Interventional procedures include R TFESI L5-S1 #1, CHRISTIANA L5-S1 x2 Medications include Ibu, Aleve REVIEW OF ORGAN SYSTEMS: CONSTITUTIONAL: No fevers or chills. No recent weight loss. NEUROLOGICAL: + numbness and tingling along the distal extremities. No seizure disorders or headaches. MUSCULOSKELETAL: + pain PSYCHIATRIC: Denies current depression or suicidal thoughts. Physical Examinations : Constitutional : Cooperative , not in acute distress . Neurologic : Cranial nerve II to XII intact. No focal neurological deficits. Psychiatric : alert & oriented x 3. Matching mood & appropriate affect. Judgment & insight intact. Musculoskeletal : Cervical Spine Motor strength in the deltoid and biceps: Normal right side. Normal Left side Motor strength biceps and the wrist extensors: Normal right side . Normal left side Motor strength in the triceps muscle: Normal right side. Normal left side Deep tendon reflexes: Normal at the biceps. Normal at Brachioradialis. Normal at triceps Vertebral body tenderness to deep palpation over Cervical facet loading test: positive bilaterally Spurling test: positive bilaterally Neck distraction test: positive bilaterally Alton sign: positive bilaterally Lumbar spine Motor strength lower extremities ,thigh and legs 5/5 Right side , 5/5 Left side Deep tendon reflexes : Normal Knee Jerk. Normal Ankle Jerk Vertebral body tenderness over L5 Wynne Test positive Lumbar facet Loading Test: positive Right / positive Left Range of motion of the lumbar spine Flexion 30 degrees, extension 10 degrees Straight Leg Raise test: Left/ Right positive at <45 degrees Tobi test: positive right / positive left. Severe tenderness over the Sacroiliac joint on the Right / Left sides Gaenslen test: positive bilaterally Seated flexion test: positive bilaterally. Sacral spine : Severe tenderness over the Sacroiliac joint: right side / left side Range of motion: Flexion of the lumbar spine <60 degrees Range of motion: Extension of the lumbar spine <20 degrees Gaenslen's Test positive Inocente's Test positive Tobi test: positive right side / left side Thigh Thrust Test Sacral Thrust Test Imaging: MRI non contrast of the lumbar spine from 02/18/23 reviewed Assessment/ Plan : Lumbar DDD Will manage residual pain at home and may return to clinic on an as needed basis. All questions answered. I have spent greater than 30 minutes on patient care today. Dr Gonzales was available by phone for the evaluation of this patient. The time was used to review the medical records including relevant urine studies and Prescription history (MAPs), review of the available imaging, evaluation and examination of the patient, coordination of care with the medical staff and if applicable referring physicians, as well as creation of the medical record PQRS Narrative: Smoking Status Never smoker Hx Alcohol Use (MH) No Home Medications: Ambulatory Orders Cetirizine HCl [Zyrtec] 10 mg PO DAILY 07/22/22 Cholecalciferol (Vitamin D3) [Vitamin D3 (125 MCG = 5,000 IU)] 5,000 unit PO DAILY 07/22/22 Garlic 1,000 mg PO DAILY 07/22/22 Glucos Sul 2Kcl/MSM/Chond/C/Mn [Glucosamine Chondroitin Cap] 1 cap PO DAILY 07/22/22 Cyclobenzaprine [Flexeril] 5 mg PO HS 04/03/23 Estrogens, Conjugated [Premarin] 0.3 mg PO QAM 04/03/23 Ibuprofen [Motrin Ib] 600 - 800 mg PO Q8H PRN 04/03/23 Telmisartan [Micardis] 80 mg PO DAILY 04/03/23 carvediloL [Coreg] 6.25 mg PO DAILY 04/03/23 carvediloL [Coreg] 12.5 mg PO DAILY 04/03/23 Calcium 1,000 mg PO DAILY 05/22/23 L.acidoph,Paracasei, B.lactis [Probiotic] 1 each PO DAILY 05/22/23 Multivitamins, Thera [Multivitamin (formulary)] 1 tab PO DAILY 05/22/23 Semaglutide [Wegovy] 0.5 mg SQ FR 05/22/23 Controlled Substance Measures - Controlled Substance Measures Is patient prescribed a controlled substance at discharge?: No
== END ==
LOC: PNWHC3 08:16
PROVIDERS: ATTEND Specialist
DX: M51.36 Other intervertebral disc degeneration, lumbar region (principal); Z88.2 Allergy status to sulfonamides
CPT/HCPCS: 99211

== ENCOUNTER → 2023-07-13 | Outpatient (CLI) | payer BC | LOC: LABPAT 09:59 | PROVIDERS: ATTEND Orthopaedic Surgery | DX: Z01.812 Encounter for preprocedural laboratory examination (principal); Z22.322 Carrier or suspected carrier of Methicillin resistant Staphylococcus aureus; M16.12 Unilateral primary osteoarthritis, left hip | CPT/HCPCS: 86850; 86900; 86901; 87070 ==

== ENCOUNTER 2023-07-21 08:06 | Day surgery (SDC) | payer BC ==
[2023-07-14 13:07] VITALS: BMI 42.7
--- NOTE | 2023-07-20 09:00 | P.HPOR ---
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 She has anterior lateral pain worse with weightbearing activities. She has a difficult time with normal activities. She is having night symptoms. She has popping and locking. She has tried therapy in addition to medications without much relief. Review of Systems Negative except as in HPI Past Medical History Past Medical History: Hyperlipidemia, Hypertension, Osteoarthritis (OA), Sleep Apnea/CPAP/BIPAP Additional Past Medical History / Comment(s): OSTEOPENIA. 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 USES C-PAP. History of Any Multi-Drug Resistant Organisms: None Reported Past Surgical History: Breast Surgery, Hysterectomy, Orthopedic Surgery, Tubal Ligation Additional Past Surgical History / Comment(s): Right ankle surgery, right t stone derrickman and rigger finger release, right thumb surgery, breast reduction, pain clinic procedure. Past Anesthesia/Blood Transfusion Reactions: Postoperative Nausea & Vomiting (PONV) Additional Past Anesthesia/Blood Transfusion Reaction / Comment(s): EXTREME NAUSEA. Past Psychological History: No Psychological Hx Reported Smoking Status: Never smoker Past Alcohol Use History: Rare Past Drug Use History: None Reported - Past Family History Father Family Medical History: Cancer Sister(s) Family Medical History: Cancer Medications and Allergies Home Medications Medication Instructions Recorded Confirmed Type Cetirizine HCl [Zyrtec] 10 mg PO QAM 07/22/22 07/14/23 History Cholecalciferol (Vitamin D3) 5,000 unit PO DAILY 07/22/22 07/14/23 History [Vitamin D3 (125 MCG = 5,000 IU)] Garlic 1,000 mg PO DAILY 07/22/22 07/14/23 History Glucos Sul 2Kcl/MSM/Chond/C/Mn 1 cap PO DAILY 07/22/22 07/14/23 History [Glucosamine Chondroitin Cap] Cyclobenzaprine [Flexeril] 5 mg PO HS 04/03/23 07/14/23 History Estrogens, Conjugated [Premarin] 0.3 mg PO QAM 04/03/23 07/14/23 History Ibuprofen [Motrin Ib] 600 - 800 mg PO Q8H PRN 04/03/23 07/14/23 History Telmisartan [Micardis] 80 mg PO HS 04/03/23 07/14/23 History carvediloL [Coreg] 6.25 mg PO QAM 04/03/23 07/14/23 History carvediloL [Coreg] 12.5 mg PO QAM 04/03/23 07/14/23 History Calcium 1,000 mg PO DAILY 05/22/23 07/14/23 History L.acidoph,Paracasei, B.lactis 1 each PO DAILY 05/22/23 07/14/23 History [Probiotic] Multivitamins, Thera [Multivitamin 1 tab PO DAILY 05/22/23 07/14/23 History (formulary)] Semaglutide [Wegovy] 0.5 mg SQ FR 05/22/23 07/14/23 History Acetaminophen Tab [Tylenol] 500 - 1,000 mg PO HS 07/14/23 07/14/23 History Allergies Allergy/AdvReac Type Severity Reaction Status Date / Time Sulfa (Sulfonamide Allergy Rash/Hives Verified 07/14/23 12:49 Antibiotics) Physical Examination - Hip left Gait: antalgic Tenderness with palpation: anterior Pain with motion: internal rotation and hip flexion ROM: flexion: 60 degrees ROM: internal rotation: 10 degrees (With pain) ROM: external rotation: 60 degrees Crepitus with motion: Yes Strength: extension: 5/5 Strength: flexion: 5/5 Strength: abduction: 5/5 Tests: impingement tests: positive Results The patient is a well-developed well-nourished female approximately 5 foot 2, 210 pounds of endomorphic habitus. HEENT exam is nonfocal, neck supple. She has painful passive motion of the left hip. Straight leg raise is negative. Clinically she has 1 cm of shortening of the left leg compared to the right. Her distal neurovascular appears intact in left lower extremity. - Diagnostic results Hip x-ray: image reviewed (2 views of the left hip obtained in the office shows severe osteoarthrosis with [id number] changes and subchondral sclerosis.) Assessment and Plan Assessment: Left hip severe osteoarthrosis ObesityBMI 38 Plan: I talked to the patient regarding her condition along with treatment options. At this point she is quite symptomatic having pain related to her left hip posterior versus despite previous conservative measures. After a thorough discussion she opts to proceed with surgery. We'll plan to proceed with left total hip arthroplasty utilizing a lateral approach. Risks and benefits were discussed at length in layman's terms. We will institute DVT prophylaxis postoperatively.
[~2023-07-21 08:06] MED LIST changes: +ACETAMINOPHEN TAB 500 MG TAB PO PRN; +DEXAMETHASONE SOD PHOSPHATE 4 MG/ML 1 ML VIAL IV ONE; -IOPAMIDOL M200 10 ML VIAL ONE; -LACTATED RINGERS 1,000 ML IV SCH; +LIDOCAINE 1% (10MG/ML) FOR IV START INTRADERMA PRN; +MELOXICAM 7.5 MG TAB PO PRN; +MIDAZOLAM 2 MG/2 ML VIAL IV PRN; +ONDANSETRON 4 MG/2 ML VIAL IVP ONE; -ROPIVACAINE 5MG/ML 20ML VIAL ONE; +TRANEXAMIC 1,000 MG/100ML-NACL 1,000 MG in SALINE 1 100ML.BAG IVPB PRN; -TRIAMCINOLONE ACETONIDE 40 MG/ML 1 ML VIAL ONE
[2023-07-21] MEDS: LACTATED RINGERS 1,000 ML IV SCH (08:36)
[2023-07-21 09:05] LABS: Glucose,Whole Blood 112 mg/dL (70-110)
[2023-07-21] MEDS ORDERED: MIDAZOLAM 2 MG/2 ML VIAL IVP ONE (10:01)
[2023-07-21] MEDS ORDERED: DEXAMETHASONE SOD PHOSPHATE 4 MG/ML 1 ML VIAL ONE (10:30)
[2023-07-21] MEDS ORDERED: MIDAZOLAM 2 MG/2 ML VIAL ONE (10:30)
[2023-07-21] MEDS ORDERED: TRANEXAMIC 1,000 MG/100ML-NACL PREMIX BAG ONE (10:30)
[2023-07-21] MEDS ORDERED: KETOROLAC 30 MG/ML 1 ML VIAL ONE (10:30)
[2023-07-21] MEDS ORDERED: ROPIVACAINE 5 MG/ML 30 ML VIAL ONE (10:30)
[2023-07-21] MEDS ORDERED: fentaNYL (PF) 50 MCG/ML 50 ML VIAL ONE (10:30)
[2023-07-21] MEDS ORDERED: PROPOFOL 10 MG/ML 20 ML VIAL IV ONE (10:30)
[2023-07-21] MEDS ORDERED: ceFAZolin 1,000 MG in SODIUM CHLORIDE 0.9% 1,000 ML IRRIGATION ONE (10:40)
--- NOTE | 2023-07-21 11:20 | P.ANPRN ---
Procedure Note - Anesthesia - Nerve Block Performed Left Garret Single Time Out Performed: Yes Date of Procedure: 07/21/23 Procedure Start Time: 10:00 Procedure Stop Time: 10:05 Location of Patient: PreOp Indication: Acute Post-Operative Pain, Requested by Surgeon Sedation Type: Sedate with meaningful contact maintained Preparation: Sterile Prep Position: Supine Needle Types: Pajunk Needle Gauge: 21 Ultrasound used to visualize needle placement: Yes Ultrasound used to observe medication spread: Yes Blood Aspirated: No Pain Paresthesia on Injection Noted: No Resistance on Injection: Normal Image Stored and Saved: Yes Events: Uneventful and Well Tolerated (Ropivacaine 0.5% 20 mL plus dexamethasone 4 mg)
[2023-07-21] MEDS ORDERED: IV FLUID CONTINUATION 1,000 ML IV ONE (11:53)
[2023-07-21] MEDS ORDERED: HYDROmorphone 1 MG/ML 1 ML SYRINGE IVP PRN (12:20)
[2023-07-21] MEDS ORDERED: MAGNESIUM HYDROXIDE 2,400 MG/30 ML CUP PO PRN (12:20)
[2023-07-21] MEDS ORDERED: HYDROcodone/APAP 7.5-325MG 1 EACH TAB PO PRN (12:20)
[2023-07-21] MEDS ORDERED: NALOXONE 0.4 MG/ML 1 ML VIAL IV PRN (12:20)
[2023-07-21] MEDS ORDERED: hydrOXYzine pamoate 25 MG CAP PO PRN (12:20)
[2023-07-21] MEDS ORDERED: HYDROmorphone 0.5 MG/0.5 ML SYRINGE IVP PRN (12:20)
--- NOTE | 2023-07-21 12:27 | P.OP ---
Date of Procedure: 07/21/23 Preoperative Diagnosis: Left hip severe osteoarthrosis Postoperative Diagnosis: Same Procedure(s) Performed: Left total hip arthroplastypress-fitlateral approach Implants: Depuy Corail size 10, 125, collared press-fit femoral stem, 36+1.5 cobalt chrome femoral head, 52 mm Ensign acetabular shell with neutral polyethylene liner. Anesthesia: regional, spinal Surgeon: Roel Ling Mold Stamper And Repairer #1: Jac Omalley Estimated Blood Loss (ml): 150 Pathology: none sent Condition: stable Disposition: PACU Indications for Procedure: The patient's a 53-year-old female who presents with progressive left hip pain secondary to osteoarthrosis despite conservative measures. A discussion of the risks and benefits of operative intervention versus continued conservative measures was made with patient. She opted to proceed with surgery. Operative risks to include infection, neurovascular injury, development of blood clots, leg length discrepancy, fracture, possible instability, possible component loosening/failure need for subsequent procedures was discussed. Informed consent was obtained. Operative Findings: As below Description of Procedure: The patient was brought to the operating room, and after induction of spinal anesthesia was placed in a lateral decubitus position. The bony prominences were appropriately padded. The pelvis was stable perpendicular to the floor with a pegboard. The left lower extremity was prepped and draped in normal fashion. A 12 cm incision was then made centered over the greater trochanter extending superiorly to level the ASIS and distally in line with the femoral shaft. The skin and subcutaneous tissues were divided sharply. Electrocautery was used for hemostasis. The fascia arias and gluteus bryn fascia was split in line with the skin incision. The muscle fibers were bluntly dissected proximally. A self-retaining retractor was placed. The anterior and posterior margins of the gluteus medius muscles identified and the anterior two thirds was detached from the greater trochanter with electrocautery. The gluteus minimus tendon was identified and detached in a similar fashion. A wide capsulotomy was performed. The femoral neck was identified and a neck cut was made approximately 1 1/2 cm above the level of the lesser trochanter with a sagittal saw at a 45 the shaft. The head was then extracted with a corkscrew. Attention was then paid towards preparing the acetabulum. Anterior and posterior retractors were placed. The remaining capsular labral tissues debrided sharply clearly defining the acetabular margins. Began reaming with a 47 mm reamer taking care to initially medialize, then reaming at 45 of abduction and 20 of anteversion. Sequential reaming is performed up to 51 mm. This was down to bleeding bony surface. A trial 52 mm acetabular shell was inserted at 45 of abduction and 20 of anteversion. This was fully seated. There was good rim fit and stability. A neutral polyethylene liner was then impacted. Care taken to avoid any soft tissue interposition. Attention was then paid towards preparing the proximal femur. A box chisel was used to open the metaphyseal region. A canal finder was used to find the femoral canal. Sequential broaching was performed up to a size 10. This is placed in 15 of anteversion with the leg perpendicular floor judging off the trans-epicondylar axis. There is good rotational stability. A calcar mill was used to fashion the medial calcar. A trial 125 neck along with a 36 mm + 1.5 trial head was placed. The hip was gently reduced. It was taken through range of motion. I felt to be stable in flexion and extension with internal and external rotation. I felt there was adequate adventism of soft tissue tension. The hip was gently dislocated. The trial components removed. Pulsatile lavage was utilized. The final size 10-125 degree collared femoral stem was inserted again with the leg perpendicular to the floor in 15 of anteversion. Again there was good rotational stability. A 36 mm + 1.5 cobalt chrome femoral head was gently impacted. The hip was gently reduced. Again it was taken through motion and felt to be stable in flexion and extension with internal and external rotation. Pulsatile lavage was again utilized. With the leg in abduction the gluteus minimus and medius tendons reattached to the greater trochanter with #2 Ethibond suture. There was minimal drainage therefore a deep drain was not placed. The fascia arias and gluteus bryn fascia was closed with #2 Ethibond suture. The subcutaneous tissues were reapproximated interrupted 2-0 Vicryl sutures. The skin was reapproximated with 3-0 subcuticular strata fix suture. Skin tape and adhesive was applied. A sterile dressing was applied. The patient was awoken from sedation and transferred to recovery room in good condition. Blood loss was estimated 150 mL. No complications were incurred. Sponge and needle counts were correct in the case. Jac TORRES assisted during the major components of the case to include exposure, implantation, and closure.
[2023-07-21] MEDS: HYDROmorphone 0.5 MG/0.5 ML SYRINGE IVP PRN ×3 (12:28→13:33)
--- NOTE | 2023-07-21 12:48 | XR ---
EXAMINATION TYPE: XR Hip Limited LT DATE OF EXAM: 07/21/2023 12:43 PM INDICATION: Patient age:Female; 53 years old; Reason for study: Status post hip surgery, assess surgical alignment; [facility]. COMPARISON: Left hip radiograph 06/15/2023 TECHNIQUE: The left hip was examined in the single frontal projection. FINDINGS: Post left hip total arthroplasty changes. Hardware appears intact with appropriate alignmen t on this single frontal projection. There is associated soft tissue gas and edema. No acute fracture or dislocation. IMPRESSION: Post left hip total plasty changes. Hardware appears intact with appropriate alignment on this single frontal projection.
[2023-07-21] MEDS ORDERED: droPERidol 5 MG/2 ML VIAL IVP ONE (13:00)
[2023-07-21] MEDS ORDERED: ONDANSETRON 4 MG/2 ML VIAL IVP PRN (18:34)
[2023-07-21] MEDS ORDERED: CYCLOBENZAPRINE 5 MG TAB PO SCH (21:00)
[2023-07-21] MEDS ORDERED: SENNOSIDES-DOCUSATE SODIUM 1 EACH TAB PO SCH (21:00)
[2023-07-21] MEDS: ACETAMINOPHEN TAB 500 MG TAB PO SCH (21:31)
[2023-07-22] MEDS: HYDROcodone/APAP 5-325MG 1 EACH TAB PO PRN ×2 (02:54→08:23)
[2023-07-22 07:56] VITALS: TEMP 98
[2023-07-22] MEDS: LACTATED RINGERS 1,000 ML IV SCH (08:27)
[2023-07-22] MEDS ORDERED: CALCIUM CARBONATE 500 MG CHEWABLE PO SCH (09:00)
[2023-07-22] MEDS ORDERED: carvediloL 12.5 MG TAB PO SCH (09:00)
[2023-07-22] MEDS ORDERED: LORATADINE 10 MG TAB PO SCH (09:00)
[2023-07-22] MEDS ORDERED: LACTOBACILLUS ACIDOPHILUS/PECT 1 EACH CAPSULE PO SCH (09:00)
[2023-07-22] MEDS ORDERED: CHOLECALCIFEROL 125 MCG (5000 IU) TABLET PO SCH (09:00)
[2023-07-22] MEDS ORDERED: carvediloL 6.25 MG TAB PO SCH (09:00)
[2023-07-22] MEDS ORDERED: ESTROGENS, CONJUGATED 0.3 MG TAB PO SCH (09:00)
[2023-07-22] MEDS ORDERED: MULTIVITAMINS, THERA 1 EACH TAB PO SCH (09:00)
[2023-07-22] MEDS ORDERED: RIVAROXABAN 10 MG TAB PO SCH (09:00)
--- NOTE | 2023-07-22 09:38 | P.DS ---
Providers Date of admission: 07/21/2023 Expected date of discharge: 07/22/23 Attending physician: Roel Ling Consults: 07/21/23 12:24 Consult Physician Routine Consulting Provider: Klaudia Ron Consult Reason/Comments: Medical Management s/p left total hip arthroplasty Do you want consulting provider notified?: Yes Primary care physician: [facility] Course: Date of admission: 07/21/2023 Date of discharge: 07/22/2023 Admission diagnosis: Left hip osteoarthritis Discharge diagnosis: Same Attending physician: Dr. Ling Surgical procedures: Left total hip arthroplasty Brief history: Patient is a 53-year-old female with a history of progressive primary left hip osteoarthritis. At this point patient has failed conservative treatment measures and has opted to proceed with a elective left total hip arthroplasty. Hospital course: Details of patient's surgery can be found in operative report. Patient tolerated the procedure well and was subsequently transported to orthopedic floor. Patient's orthopeidc and medical care was provided daily. Patient had daily laboratory tests performed for evaluation of overall blood counts. Patient had daily physical therapy to include strengthening range of motion as well as education with walker ambulation. Patient was treated with Xarelto for their postoperative DVT prophylaxis during their inpatient stay. Patient was noted to have a relatively uneventful postoperative course. Patient reported satisfactory pain control with oral pain medications by postoperative day 1. Patient showed satisfactory progress with physical therapy. Patient moved steadily through the program and had no difficulty meeting the goals by postoperative day 1. Given patient's otherwise satisfactory course and having met physical therapy goals, plan is to discharge patient home with health services on postoperative day 1. Discharge condition/disposition: Patient will be discharged home with health services in stable condition. Discharge medications: Instructions are given on resumption of patient's normal daily medications per primary care recommendation, in addition patient will be prescribed Benton; senna; Eliquis 2.5 mg twice a day 2 weeks. Discharge instructions: 1. Wound care and infection precautions, keep incision dry and covered while showering, no lotions, creams, moisturizers. No soaking, tubs, pools, hottubs. Do not scrub over the incision. 2. Weight-bear as tolerated with walker / cane until follow-up. 3. Ice and elevate when necessary. Do not exceed 20 minutes per hour with ice pack. 4. Utilize compression sleeve until seen at first follow up appointment. 5. Visiting nursing care. 6. Home physical therapy 7. Pain meds and anticoagulants per prescription. 8. Pain medication has potential to cause constipation. Increase oral fluid and fiber intake. Contact primary care provider if you have not had a bowel movement within 48 hours after discharge 9. No anti-inflammatory medication until discussed at first post operative visit, this including Motrin, Aleve, Mobic, Diclofenac. 10. Follow up in office at 2 weeks postop with Matthew Patton PA-C / Jac Omalley PA-C 11. Follow up with your primary care doctor 7-10 days after discharge. 12. Contact [facility] with any questions, . Assessment: Left hip osteoarthritis Procedures: Left total hip arthroplasty Patient Condition at Discharge: Good Plan - Discharge Summary Discharge Rx Participant: No New Discharge Prescriptions: New Apixaban [Eliquis] 2.5 mg PO BID #60 tab HYDROcodone/APAP 7.5-325MG [Benton 7.5] 1 - 2 each PO Q6HR PRN #32 tab PRN Reason: Pain Sennosides/Docusate Sodium [Senna Plus 8.6-50 mg Softgel] 1 each PO DAILY #20 capsule No Action Glucos Sul 2Kcl/MSM/Chond/C/Mn [Glucosamine Chondroitin Cap] 1 cap PO DAILY Garlic 1,000 mg PO DAILY carvediloL [Coreg] 12.5 mg PO QAM Ibuprofen [Motrin Ib] 600 - 800 mg PO Q8H PRN PRN Reason: Pain Calcium 1,000 mg PO DAILY Acetaminophen Tab [Tylenol] 500 - 1,000 mg PO HS Cholecalciferol (Vitamin D3) [Vitamin D3 (125 MCG = 5,000 IU)] 5,000 unit PO DAILY Cetirizine HCl [Zyrtec] 10 mg PO QAM carvediloL [Coreg] 6.25 mg PO QAM Telmisartan [Micardis] 80 mg PO HS Estrogens, Conjugated [Premarin] 0.3 mg PO QAM Cyclobenzaprine [Flexeril] 5 mg PO HS Semaglutide [Wegovy] 0.5 mg SQ FR Multivitamins, Thera [Multivitamin (formulary)] 1 tab PO DAILY L.acidoph,Paracasei, B.lactis [Probiotic] 1 each PO DAILY Discharge Medication List Cetirizine HCl [Zyrtec] 10 mg PO QAM 07/22/22 [History] Cholecalciferol (Vitamin D3) [Vitamin D3 (125 MCG = 5,000 IU)] 5,000 unit PO DAILY 07/22/22 [History] Garlic 1,000 mg PO DAILY 07/22/22 [History] Glucos Sul 2Kcl/MSM/Chond/C/Mn [Glucosamine Chondroitin Cap] 1 cap PO DAILY 07/22/22 [History] Cyclobenzaprine [Flexeril] 5 mg PO HS 04/03/23 [History] Estrogens, Conjugated [Premarin] 0.3 mg PO QAM 04/03/23 [History] Ibuprofen [Motrin Ib] 600 - 800 mg PO Q8H PRN 04/03/23 [History] Telmisartan [Micardis] 80 mg PO HS 04/03/23 [History] carvediloL [Coreg] 6.25 mg PO QAM 04/03/23 [History] carvediloL [Coreg] 12.5 mg PO QAM 04/03/23 [History] Calcium 1,000 mg PO DAILY 05/22/23 [History] L.acidoph,Paracasei, B.lactis [Probiotic] 1 each PO DAILY 05/22/23 [History] Multivitamins, Thera [Multivitamin (formulary)] 1 tab PO DAILY 05/22/23 [History] Semaglutide [Wegovy] 0.5 mg SQ FR 05/22/23 [History] Acetaminophen Tab [Tylenol] 500 - 1,000 mg PO HS 07/14/23 [History] Apixaban [Eliquis] 2.5 mg PO BID #60 tab 07/22/23 [Rx] HYDROcodone/APAP 7.5-325MG [Benton 7.5] 1 - 2 each PO Q6HR PRN #32 tab 07/22/23 [Rx] Sennosides/Docusate Sodium [Senna Plus 8.6-50 mg Softgel] 1 each PO DAILY #20 capsule 07/22/23 [Rx] Follow up Appointment(s)/Referral(s): Jac Omalley, ASHLEY [PHYSICIAN NEONATAL SURGEON] - 2 Weeks Patient Instructions/Handouts: Total Hip Replacement (DC) Activity/Diet/Wound Care/Special Instructions: Orthopedic Discharge Instructions: 1. Wound care and infection precautions, keep incision dry and covered while showering, no lotions, creams, moisturizers. No soaking, pools, hot tubs. Do not scrub over incision. 2. Weight-bear as tolerated with walker / cane until follow-up. 3. Ice and elevate when necessary. Do not exceed 20 minutes per hour with ice pack. 4. Utilize compression sleeve until seen at first follow up appointment. 5. Pain meds and anticoagulants per prescription. 6. Pain medication has potential to cause constipation. Increase oral fluid and fiber intake. Contact primary care provider if you have not had a bowel movement within 48 hours after discharge. 7. No anti-inflammatory medication until discussed at first post operative visit, this including Motrin, Aleve, Mobic, Diclofenac. 8. Follow up in office at 2 weeks postop with Matthew Patton PA-C / Jac Omalley PA-C 9. Follow up with your primary care doctor 7-10 days after discharge. 10. Contact [facility] with any questions, . Keep incision clean, dry, intact. While showering, cover fusion tape with Saran wrap. Keep fusion tape on until follow-up appointment in office at 2 weeks. Take Eliquis 2.5 mg twice a day 2 weeks. Discharge Disposition: HOME WITH HOME HEALTH SERVICES
--- NOTE | 2023-07-22 10:46 | P.PN ---
Subjective Progress Note Date: 07/22/23 Principal diagnosis: Left hip osteoarthritis Patient was seen at bedside this morning lying in the right lateral recumbent position with dressing over the left hip. Patient says she is doing well this morning. Patient is not complaining of any nausea this morning. Patient says she did have one bout of nausea yesterday. Patient says she has been up walking around the room several times and has urinated. Patient says she is looking forward to work with therapy later this morning. Patient is hoping to go home later today. Patient does have a walker at home. Patient denies any other issues at this time. Patient denies chest pain, fever, shortness of breath, nausea, vomiting, change in vision, loss of bowel/bladder control. Objective - Vital Signs Vital signs: Vital Signs Temp 98.0 F 07/22/23 07:51 Pulse 89 07/22/23 07:51 Resp 15 07/22/23 07:51 BP 124/80 07/22/23 07:51 Pulse Ox 96 07/22/23 07:51 FiO2 Intake & Output 07/21/23 07/22/23 07/22/23 18:59 06:59 18:59 Intake Total 2181 Output Total 150 Balance 2030 Weight 104.6 kg Intake: IV 1701 Oral 480 Output: Estimated Blood Loss 150 Other: Voiding Method Toilet # Voids 1 3 - Exam Left hip: Incision is clean, dry, and intact. The exofin fusion tape is in good condition. There is minimal soft tissue swelling and ecchymosis surrounding the medial and lateral aspects of the incision. Calf is soft, no tenderness with palpation. Plantar flexion, dorsiflexion, EHL, FHL are intact. Sensory exam to light touch throughout the extremity is intact, dorsal pedis pulses 2+. Assessment and Plan Assessment: 1. Left total hip arthroplasty Plan: 1. Left total hip arthroplasty - left total hip arthroplasty performed yesterday, 07/21/2023. Patient stable at bedside this morning. Patient does have a walker at home. Pending PT/OT eval, plan for discharge home later today with health services. 2. Appreciate medical management 3. Pain management - [place] 4. DVT prophylaxis - Xarelto in hospital. Going home with eliquis 5. GI prophylaxis - senna 6. PT/OT - weightbearing as tolerated with walker 7. Encourage incentive spirometer use 8. Discharge planning - plan for discharge home with health services later today pending PT/OT eval. Time with Patient: Less than 30
[2023-07-22 10:59] LABS: Basophils # (A) 0.03 X 10*3/uL (0.00-0.10); Basophils % (A) 0.1 %; Eosinophils # (A) 0.01 X 10*3/uL (0.04-0.35); Eosinophils % (A) 0 %; HCT 32.2 % (37.2-46.3); HGB 10.8 d/dL (12.0-15.0); Lymphocytes # (A) 1.17 X 10*3/uL (0.90-5.00); Lymphocytes % (A) 5.6 %; MCH 30.3 pg (27.0-32.0); MCHC 33.5 d/dL (32.0-37.0); MCV 90.2 FL (80.0-97.0); Mean Platelet Volume 10.4 FL (9.5-12.2); Monocytes # (A) 1.36 X 10*3/uL (0.20-1.00); Monocytes % (A) 6.5 %; NRBC Per 100 WBC 0 X 10*3/uL (0.00-0.01); Neutrophils # (A) 18.39 X 10*3/uL (1.80-7.70); Neutrophils % (A) 87.2 %; Platelet Count 392 X 10*3/uL (140-440); RBC 3.57 X 10*6/uL (4.10-5.20); RDW 12.2 % (11.5-14.5); WBC 21.08 X 10*3/uL (4.50-10.00)
[2023-07-22 11:09] LABS: BUN/Creat Ratio 16.14 Ratio (12.00-20.00); Blood Urea Nitrogen 11.3 mg/dL (9.0-27.0); Calcium 8.7 mg/dL (8.7-10.3); Chloride 104 mmol/L (96-109); Glucose 111 mg/dL (70-110); Potassium 3.9 mmol/L (3.5-5.5); Sodium 142 mmol/L (135-145)
[2023-07-22] MEDS: ACETAMINOPHEN TAB 500 MG TAB PO SCH (12:52)
[2023-07-22 14:06] VITALS: BP 124/62; PULSE 88; RESP 16
--- NOTE | 2023-07-23 16:31 | P.CONS ---
History of Present Illness - Reason for Consult Medical management status post left hip arthroplasty - History of Present Illness This is a pleasant 53-year-old female who was recently admitted under orth opedic services status post left total hip arthroplasty. Patient reports she follows with Dr. Fernando in the outpatient setting and underwent re-surgical clearance with a past medical history of hyperlipidemia, hypertension, osteoarthritis, sleep apnea and uses a CPAP. Patient denies smoking rarely uses alcohol and denies any other illicit drug use. Patient is postop day 1 and awaiting to work with physical therapy although doing relatively well. Patient reports her pain is managed on current regimen and did have some mild lightheadedness when getting up and walking but resolved quickly. Patient had just received pain medication prior to this. Patient denies any further lightheadedness or dizziness and does have history of hypertension and has been instructed to monitor blood pressure closely and if blood pressures are low recommend holding blood pressure medication. Also instructed the patient to sit up at the side of the bed for a few minutes prior to getting up and walking to avoid dizziness and lightheadedness. Review Of Systems: Constitutional: No fever, no chills, no night sweats. No weight change. No weakness, fatigue or lethargy. No daytime sleepiness. EENT: No headache. No blurred vision or double vision, no loss of vision. No loss of Hearing, no ringing in the ears, no dizziness. No nasal drainage or congestion. No epistaxis. No sore throat. Lungs: No shortness of breath, cough, no sputum production. No wheezing. Cardiovascular: No chest pain, no lower extremity edema. No palpitations. No paroxysmal nocturnal dyspnea. No orthopnea. No lightheadedness or dizziness. No syncopal episodes. Abdominal: No abdominal pain. No nausea, vomiting. No diarrhea. No constipation. No bloody or tarry stools.. No loss of appetite. Genitourinary: No dysuria, increased frequency, urgency. No urinary retention. Musculoskeletal: No myalgias. No muscle weakness, no gait dysfunction, no frequent falls. No back pain. No neck pain. Reports some left hip discomfort Integumentary: No wounds, no lesions. No rash or pruritus. No unusual bruising. No change in hair or nails. Neurologic: No aphasia. No facial droop. No change in mentation. No head injury. No headache. No paralysis. No paresthesia. Psychiatric: No depression. No anxiety. No mood swings. Endocrine: No abnormal blood sugars. No weight change. No excessive sweating or thirst. No cold intolerance. PHYSICAL EXAMINATION: GENERAL: The patient is alert and oriented x4, Well developed, well nourished. Morbidly obese HEENT: Pupils are round and equally reacting to light. EOMI. no scleral icterus. No conjunctival pallor. Normocephalic, atraumatic. No pharyngeal erythema. No thyromegaly. CARDIOVASCULAR: S1 and S2 muffled PULMONARY: diminished breath sounds bilaterally with no wheezing or rhonchi noted. ABDOMEN: soft. Nontender on exam. obese. non-distended, normoactive bowel sounds. No palpable organomegaly. MUSCULOSKELETAL: No joint swelling or deformity. EXTREMITIES: No cyanosis, clubbing, or pedal edema. Left surgical hip dressing laterally is dry and intact and soft in the groin is soft with no significant swelling noted NEUROLOGICAL: Gross neurological examination did not reveal any focal deficits. Diffuse weakness SKIN: No rashes. Assessment: Status post left total hip arthroplasty History of hyperlipidemia History of hypertension Osteoarthritis Sleep apnea and uses a CPAP Morbid obesity with a BMI of 42.2 GI prophylaxis DVT prophylaxis Full code Plan: Patient is status post 1 day postop for left total hip arthroplasty doing relat ively well. Patient was up and working with physical therapy with plans on going home. Patient does have a walker and a cane at the home and support Home medications reviewed and resumed as appropriate and holding some of the blood pressure medications to monitor for any postoperative hypotension. Incentive spirometer ordered encourage the patient continue using at least 10 times every hour while awake including taking home for the next few days Patient did receive presurgical clearance from her primary care provider Dr. Del Rosario and instructed patient to follow-up outpatient Patient is medically stable for discharge today Thank you kindly for this consultation. We will continue to follow with orthopedics during hospitalization. The impression and plan of care has been dictated by Stephanie Posada, nurse practitioner as directed. Dr. Benjamin MD I have performed a history and examination and MDM of this patient, discussed the same with the dictator, and agree with the dictator's assessment and plan as written ,documented as a scribe. Based on total visit time, I have performed more than 50% of the visit. Any additional findings or plans will be noted. Past Medical History Past Medical History: Hyperlipidemia, Hypertension, Osteoarthritis (OA), Sleep Apnea/CPAP/BIPAP Additional Past Medical History / Comment(s): OSTEOPENIA. 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 USES C-PAP. History of Any Multi-Drug Resistant Organisms: None Reported Past Surgical History: Breast Surgery, Hysterectomy, Orthopedic Surgery, Tubal Ligation Additional Past Surgical History / Comment(s): Right ankle surgery, right trigger finger release, right thumb surgery, breast reduction, pain clinic procedure. Past Anesthesia/Blood Transfusion Reactions: Postoperative Nausea & Vomiting (PONV) Additional Past Anesthesia/Blood Transfusion Reaction / Comm: EXTREME NAUSEA. Past Psychological History: No Psychological Hx Reported Smoking Status: Never smoker Past Alcohol Use History: Rare Past Drug Use History: None Reported - Past Family History Father Family Medical History: Cancer Sister(s) Family Medical History: Cancer Medications and Allergies Home Medications Medication Instructions Recorded Confirmed Type Cetirizine HCl [Zyrtec] 10 mg PO QAM 07/22/22 07/21/23 History Cholecalciferol (Vitamin D3) 5,000 unit PO DAILY 07/22/22 07/21/23 History [Vitamin D3 (125 MCG = 5,000 IU)] Garlic 1,000 mg PO DAILY 07/22/22 07/21/23 History Glucos Sul 2Kcl/MSM/Chond/C/Mn 1 cap PO DAILY 07/22/22 07/21/23 History [Glucosamine Chondroitin Cap] Cyclobenzaprine [Flexeril] 5 mg PO HS 04/03/23 07/21/23 History Estrogens, Conjugated [Premarin] 0.3 mg PO QAM 04/03/23 07/21/23 History Ibuprofen [Motrin Ib] 600 - 800 mg PO Q8H PRN 04/03/23 07/21/23 History Telmisartan [Micardis] 80 mg PO HS 04/03/23 07/21/23 History carvediloL [Coreg] 6.25 mg PO QAM 04/03/23 07/21/23 History carvediloL [Coreg] 12.5 mg PO QAM 04/03/23 07/21/23 History Calcium 1,000 mg PO DAILY 05/22/23 07/21/23 History L.acidoph,Paracasei, B.lactis 1 each PO DAILY 05/22/23 07/21/23 History [Probiotic] Multivitamins, Thera [Multivitamin 1 tab PO DAILY 05/22/23 07/21/23 History (formulary)] Semaglutide [Wegovy] 0.5 mg SQ FR 05/22/23 07/21/23 History Acetaminophen Tab [Tylenol] 500 - 1,000 mg PO HS 07/14/23 07/21/23 History Apixaban [Eliquis] 2.5 mg PO BID #60 tab 07/22/23 Rx HYDROcodone/APAP 7.5-325MG [[place] 1 - 2 each PO Q6HR PRN #32 tab 07/22/23 Rx 7.5] Sennosides/Docusate Sodium [Senna 1 each PO DAILY #20 capsule 07/22/23 Rx Plus 8.6-50 mg Softgel] Allergies Allergy/AdvReac Type Severity Reaction Status Date / Time Sulfa (Sulfonamide Allergy Rash/Hives Verified 07/21/23 08:35 Antibiotics) Physical Exam Vitals: Vital Signs Temp Pulse Pulse Pulse Resp BP BP 07/22/23 07:51 98.0 F 89 15 124/80 07/22/23 01:50 97.5 F L 76 18 122/75 07/21/23 20:31 97.9 F 64 18 126/83 07/21/23 18:08 74 103/64 07/21/23 17:53 72 104/67 07/21/23 17:38 65 117/74 07/21/23 17:23 97.5 F L 07/21/23 17:22 65 129/88 07/21/23 17:18 57 L 129/88 07/21/23 17:03 67 130/75 07/21/23 16:26 07/21/23 16:04 60 103/67 07/21/23 15:49 69 129/77 07/21/23 15:33 66 145/94 07/21/23 15:18 58 L 130/75 07/21/23 15:03 57 L 122/76 07/21/23 14:48 58 L 121/83 07/21/23 14:33 61 128/73 07/21/23 14:18 60 126/84 07/21/23 14:00 54 L 124/84 07/21/23 13:50 55 L 16 117/65 10/17/23 13:35 68 16 131/67 07/21/23 13:21 55 L 16 120/66 07/21/23 13:06 68 16 121/62 07/21/23 12:51 57 L 16 116/65 07/21/23 12:36 62 16 119/70 07/21/23 12:21 97.2 F L 75 16 07/21/23 10:11 74 18 136/60 Pulse Ox 07/22/23 07:51 96 07/22/23 01:50 96 07/21/23 20:31 97 07/21/23 18:08 96 07/21/23 17:53 96 07/21/23 17:38 100 07/21/23 17:23 07/21/23 17:22 98 07/21/23 17:18 97 07/21/23 17:03 99 07/21/23 16:26 97 07/21/23 16:04 100 07/21/23 15:49 94 L 07/21/23 15:33 92 L 07/21/23 15:18 98 07/21/23 15:03 99 07/21/23 14:48 98 07/21/23 14:33 98 07/21/23 14:18 98 07/21/23 14:00 94 L 07/21/23 13:50 99 07/21/23 13:35 99 07/21/23 13:21 93 L 07/21/23 13:06 95 07/21/23 12:51 99 07/21/23 12:36 99 07/21/23 12:21 99 07/21/23 10:11 95 Intake and Output 07/21/23 07/22/23 07/22/23 22:59 06:59 14:59 Intake Total 480 Balance 480 Intake: Oral 480 Other: Voiding Method Toilet # Voids 1 3 Weight 104.6 kg Results CBC & Chem 7: 07/22/23 06:49 07/22/23 06:49
== END 2023-07-22 15:53 | disposition home health service (06) ==
LOC: OR 08:06 → 4SSUR 12:20 → OR 07-22 15:53
PROVIDERS: ATTEND Orthopaedic Surgery
DX: M16.12 Unilateral primary osteoarthritis, left hip (principal); G89.18 Other acute postprocedural pain; I10 Essential (primary) hypertension; E78.5 Hyperlipidemia, unspecified; G47.30 Sleep apnea, unspecified; M85.80 Other specified disorders of bone density and structure, unspecified site; Z98.51 Tubal ligation status; Z90.710 Acquired absence of both cervix and uterus; Z98.890 Other specified postprocedural states; Z86.59 Personal history of other mental and behavioral disorders; Z88.2 Allergy status to sulfonamides; Z79.899 Other long term (current) drug therapy
CPT/HCPCS: 94760; 97530; 97161; 97166; 64447; 80048; 83735; 85025; 73501; 27130; C1776; J2250; J1100; J0690 ×3; J2405; J1170; J1790

== ENCOUNTER → 2023-09-23 | Outpatient (CLI) | payer BC ==
--- NOTE | 2023-09-23 13:43 | P.PN ---
Subjective DATE: 09/23/2023 FOLLOW UP VISIT. Patient with obstructive sleep apnea hypopnea syndrome return to sleep center for follow-up visit. Information from previous visit have been reviewed. Patient is using PAP equipment every night for the whole night, getting PAP supplies in time. The patient does not have significant problems with the mask, PAP unit and humidification. [place] sleepiness scale is 6, which is normal. I checked information from PAP unit. PAP unit pressure 5-15, average 9 cm H2O. Usage is 100 % for more then 4 hours, average 9.3 hours per night. Leak is 2 l/m, which is in acceptable range. Apnea Hypopnea Index is 1.3, which is normal. MEDICATIONS:1. Zyrtec 10 mg once a day 2. Coreg 12.5 mg once a day 3. Micardis 80 mg once a day During physical exam: GENERAL: A pleasant patient without any distress. VITAL SIGNS: BP 149/89, HR 86, RR 14 , weight 229.6, temperature 98.0, oxygen saturation at room air 99 % . HEENT: PERRLA, EOMI.low position of soft palate, Mallapati 4 . NECK: Supple. No JVD. LUNGS: Clear to percussion and to auscultation. Good air exchange. No wheezing or rhonchi. HEART: S1, S2 regular. ABDOMEN: Soft and nontender.[] EXTREMITIES: No clubbing or cyanosis. THERAPY MANAGER: Awake, alert, and oriented x3. No focal deficit. Impressions: 1. Obstructive sleep apnea-hypopnea syndrome. Patient demonstrated great compliance with treatment, benefiting from treatment. 2. Hypertension. 3. Obesity, BMI 40.5. 4. Seasonal ALLERGY. 5. Low back problems. 6. History of out of dream movements in the past, no complaints of the present time. 7. Status post partial hysterectomy. 8. Status post breast reduction. 9. Status post surgical treatment for carpal tunnel syndrome. Plan: 1. Continue using PAP equipment every night for the whole night. 2. To change air filter at least 1-2 times per month. 3. PAP unit should stay lower then position of the head. 4. Advised patient to remove all remaining water from humidifier canister daily and make it dry after each usage. Refill canister with fresh distilled water before each usage. 5. Sleep hygiene with regular time in bed for at least 8 hours. 6. Precautions related to driving. No driving if feel any sleepiness. 7. I will maintain prescription for PAP supplies including mask, tube, filters. 8. Follow up visit in 6 months or earlier if patient has any problems. 9. Watching and losing weight. Thank you very much for allowing me to participate in the management of your patient. Tono Torres MD, PhD, FAASM. Diplomat of [place] [employer], Sleep Medicine Board by [place] [employer] of [facility] [place]
== END ==
LOC: 3 N SLEEP 13:06
PROVIDERS: ATTEND Internal Medicine
DX: G47.33 Obstructive sleep apnea (adult) (pediatric) (principal); I10 Essential (primary) hypertension; E66.9 Obesity, unspecified; Z90.710 Acquired absence of both cervix and uterus; G56.00 Carpal tunnel syndrome, unspecified upper limb; Z68.41 Body mass index [BMI] 40.0-44.9, adult; Z98.890 Other specified postprocedural states; Z99.89 Dependence on other enabling machines and devices; Z88.2 Allergy status to sulfonamides
CPT/HCPCS: 99212

== ENCOUNTER → 2024-05-25 | Outpatient (CLI) | payer BC | LOC: 3 N SLEEP 10:30 | PROVIDERS: ATTEND Internal Medicine | CPT/HCPCS: 99212 ==

== ENCOUNTER → 2024-07-14 | Outpatient (CLI) | payer BC ==
[2024-07-14 16:35] VITALS: BP 158/95; PULSE 84; RESP 16; TEMP 98.2
--- NOTE | 2024-07-14 17:16 | P.PROGSL ---
Subjective DATE: 07/14/2024 FOLLOW UP VISIT. Patient with obstructive sleep apnea hypopnea syndrome return to sleep center for follow-up visit. Information from previous visit have been reviewed. Patient is using PAP equipment every night for the whole night, getting PAP supplies in time. The patient does not have significant problems with the mask and humidification. [place] sleepiness scale is 4, which is normal. I checked information from PAP unit. Motor life expectancy exceeded. CPAP unit is noisy. PAP unit pressure 5-15, average 9.1 cm H2O. Usage is 100% for more then 4 hours, average 8.6 hours per night. Leak is 1 l/m, which is in great range. Apnea Hypopnea Index is 1.0, which is perfect. MEDICATIONS have been reviewed, please see below. During physical exam: GENERAL: A pleasant patient without any distress. VITAL SIGNS: Please see below, weight is 235 lbs. HEENT: PERRLA, EOMI.low position of soft palate, Mallapati 4 . NECK: Supple. No JVD. LUNGS: Clear to percussion and to auscultation. Good air exchange. No wheezing or rhonchi. HEART: S1, S2 regular. ABDOMEN: Soft and nontender. Obese EXTREMITIES: No clubbing or cyanosis. 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 No focal deficit. Impressions: 1. Obstructive sleep apnea-hypopnea syndrome. Patient demonstrated great compliance with treatment, benefiting from treatment. 2. Obesity, BMI 42.2. 3. Hypertension. 4. Seasonal allergy. 5. Low back problems. 6. History of out of during movements in the past, no any recent episodes. 7. Status post breast reduction. 8. Status post surgical treatment for carpal tunnel syndrome. 9. Status post partial hysterectomy. Plan: 1. Continue using PAP equipment every night for the whole night. Prescription to replace CPAP unit, because motor life expectancy exceeded and is noisy. 2. Sleep hygiene with regular time in bed for at least 7.5-8 hours 3. PAP unit should stay lower then position of the head. 4. Advised patient to remove all remaining water from humidifier canister daily and make it dry after each usage. Refill canister with fresh distilled water before each usage. 5. Watching weight. 6. Precautions related to driving. No driving if feel any sleepiness. 7. I will maintain prescription for PAP supplies including mask, tube, filters. 8. Follow up visit in 1-3 months to check compliance with new CPAP unit, clinical response and make any necessary adjustments. Thank you very much for allowing me to participate in the management of your patient. Tono Torres MD, PhD, FAASM. Diplomat of [place] [employer], Sleep Medicine Board by [place] [employer] Administrative Technician of [facility] [place] Objective - Vital Signs Vital Signs: Vital Signs Temp 98.2 F 07/14/24 16:34 Pulse 84 07/14/24 16:34 Resp 16 07/14/24 16:34 BP 158/95 07/14/24 16:34 Pulse Ox 96 07/14/24 16:34 FiO2 Intake & Output 07/13/24 07/14/24 07/14/24 18:59 06:59 18:59 Weight 106.594 kg Home Medications: Home Medications Medication Instructions Recorded Confirmed Type Cetirizine HCl [Zyrtec] 10 mg PO QAM 07/22/22 07/14/24 History Cholecalciferol (Vitamin D3) 5,000 unit PO DAILY 07/22/22 07/21/23 History [Vitamin D3 (125 MCG = 5,000 IU)] Garlic 1,000 mg PO DAILY 07/22/22 07/21/23 History Glucos Sul 2Kcl/MSM/Chond/C/Mn 1 cap PO DAILY 07/22/22 07/21/23 History [Glucosamine Chondroitin Cap] Cyclobenzaprine [Flexeril] 5 mg PO HS 04/03/23 07/21/23 History Estrogens, Conjugated [Premarin] 0.3 mg PO QAM 04/03/23 07/14/24 History Ibuprofen [Motrin Ib] 600 - 800 mg PO Q8H PRN 04/03/23 07/21/23 History Telmisartan [Micardis] 80 mg PO HS 04/03/23 07/14/24 History carvediloL [Coreg] 6.25 mg PO QAM 04/03/23 07/21/23 History carvediloL [Coreg] 12.5 mg PO QAM 04/03/23 07/14/24 History Calcium 1,000 mg PO DAILY 05/22/23 07/21/23 History L.acidoph,Paracasei, B.lactis 1 each PO DAILY 05/22/23 07/21/23 History [Probiotic] Multivitamins, Thera [Multivitamin 1 tab PO DAILY 05/22/23 07/21/23 History (formulary)] Semaglutide [Wegovy] 0.5 mg SQ FR 05/22/23 07/21/23 History Acetaminophen Tab [Tylenol] 500 - 1,000 mg PO HS 07/14/23 07/21/23 History Apixaban [Eliquis] 2.5 mg PO BID #60 tab 07/22/23 Rx HYDROcodone/APAP 7.5-325MG [[place] 1 - 2 each PO Q6HR PRN #32 tab 07/22/23 Rx 7.5] Sennosides/Docusate Sodium [Senna 1 each PO DAILY #20 capsule 07/22/23 Rx Plus 8.6-50 mg Softgel] Phentermine HCl [Adipex P] 15 mg PO DAILY 07/14/24 07/14/24 History
== END | disposition home or self-care (01) ==
LOC: 3 N SLEEP 16:10
PROVIDERS: ATTEND Internal Medicine
DX: G47.33 Obstructive sleep apnea (adult) (pediatric) (principal); E66.9 Obesity, unspecified; I10 Essential (primary) hypertension; J30.2 Other seasonal allergic rhinitis; M54.50 Low back pain, unspecified; Z90.711 Acquired absence of uterus with remaining cervical stump; Z87.39 Personal history of other diseases of the musculoskeletal system and connective tissue; Z98.890 Other specified postprocedural states; Z68.41 Body mass index [BMI] 40.0-44.9, adult; Z99.89 Dependence on other enabling machines and devices; Z88.2 Allergy status to sulfonamides; Z79.01 Long term (current) use of anticoagulants; Z79.899 Other long term (current) drug therapy
CPT/HCPCS: 99212

== ENCOUNTER 2024-10-19 17:27 | Emergency (ER) | payer BC ==
[2024-10-19] MEDS: Acetaminophen-Codeine 300-30mg TAB PO STA (18:15)
--- NOTE | 2024-10-19 19:17 | XR ---
EXAMINATION TYPE: XR knee complete LT DATE OF EXAM: 10/19/2024 6:49 PM COMPARISON: None CLINICAL INDICATION: Female, 54 years old with history of left pain, twisting injury; PHH, pain TECHNIQUE: XR knee complete LT 3 views submitted. FINDINGS: No evidence of any acute osseous pathology, soft tissue swelling, or joint effusion is no kavon. Tricompartmental osteophyte formation involving the femoral condyles, tibial plateau and patella . Mild joint space narrowing. A fabella is present. IMPRESSION: 1. No acute osseous pathology. 2. Mild moderate tricompartmental osteoarthritic changes. [facility], , 10/19/2024 7:15 PM
--- NOTE | 2024-10-19 20:09 | ED ---
Lower Extremity Injury HPI - General Chief Complaint: Extremity Injury, Lower Stated Complaint: L knee pain Time Seen by Provider: 10/19/24 17:35 Source: patient Mode of arrival: wheelchair Limitations: no limitations - History of Present Illness Initial Comments: 54-year-old female presents emergency department reporting left knee pain. 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 States that since this happened she has been unable to weight-bear. Patient has majority of the pain when she fully extends her leg. She did not take anything for the pain before coming in. She denies any numbness, tingling or weakness in her lower extremity. No other injuries. Patient has had previous orthopedic surgery by Dr. Byrne. No other alleviating, precipitating or modifying factors - Related Data Home Medications Medication Instructions Recorded Confirmed Cetirizine HCl [Zyrtec] 10 mg PO QAM 07/22/22 07/14/24 Cholecalciferol (Vitamin D3) 5,000 unit PO DAILY 07/22/22 07/21/23 [Vitamin D3 (125 MCG = 5,000 IU)] Garlic 1,000 mg PO DAILY 07/22/22 07/21/23 Glucos Sul 2Kcl/MSM/Chond/C/Mn 1 cap PO DAILY 07/22/22 07/21/23 [Glucosamine Chondroitin Cap] Cyclobenzaprine [Flexeril] 5 mg PO HS 04/03/23 07/21/23 Estrogens, Conjugated [Premarin] 0.3 mg PO QAM 04/03/23 07/14/24 Ibuprofen [Motrin Ib] 600 - 800 mg PO Q8H PRN 04/03/23 07/21/23 Telmisartan [Micardis] 80 mg PO HS 04/03/23 07/14/24 carvediloL [Coreg] 6.25 mg PO QAM 04/03/23 07/21/23 carvediloL [Coreg] 12.5 mg PO QAM 04/03/23 07/14/24 Calcium 1,000 mg PO DAILY 05/22/23 07/21/23 L.acidoph,Paracasei, B.lactis 1 each PO DAILY 05/22/23 07/21/23 [Probiotic] Multivitamins, Thera [Multivitamin 1 tab PO DAILY 05/22/23 07/21/23 (formulary)] Semaglutide [Wegovy] 0.5 mg SQ FR 05/22/23 07/21/23 Acetaminophen Tab [Tylenol] 500 - 1,000 mg PO HS 07/14/23 07/21/23 Phentermine HCl [Adipex P] 15 mg PO DAILY 07/14/24 07/14/24 Previous Rx's Medication Instructions Recorded Apixaban [Eliquis] 2.5 mg PO BID #60 tab 07/22/23 HYDROcodone/APAP 7.5-325MG [Spooner 1 - 2 each PO Q6HR PRN #32 tab 07/22/23 7.5] Sennosides/Docusate Sodium [Senna 1 each PO DAILY #20 capsule 07/22/23 Plus 8.6-50 mg Softgel] Acetaminophen-Codeine 300-30mg 1 tab PO Q6HR PRN #12 tablet 10/19/24 [Tylenol #3] Allergies Allergy/AdvReac Type Severity Reaction Status Date / Time Sulfa (Sulfonamide Allergy Rash/Hives Verified 10/19/24 17:31 Antibiotics) Review of Systems ROS Statement: Those systems with pertinent positive or pertinent negative responses have been documented in the HPI. ROS Other: All systems not noted in ROS Statement are negative. Past Medical History Past Medical History: Hyperlipidemia, Hypertension, Osteoarthritis (OA), Sleep Apnea/CPAP/BIPAP Additional Past Medical History / Comment(s): OSTEOPENIA. 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 USES C-PAP. History of Any Multi-Drug Resistant Organisms: None Reported Past Surgical History: Breast Surgery, Hysterectomy, Orthopedic Surgery, Tubal Ligation Additional Past Surgical History / Comment(s): Right ankle surgery, right trigger finger release, right thumb surgery, breast reduction, pain clinic procedure. Past Anesthesia/Blood Transfusion Reactions: Postoperative Nausea & Vomiting (PONV) Additional Past Anesthesia/Blood Transfusion Reaction / Comment(s): EXTREME NAUSEA. Past Psychological History: No Psychological Hx Reported Smoking Status: Never smoker Past Alcohol Use History: Rare Past Drug Use History: None Reported - Past Family History Father Family Medical History: Cancer Sister(s) Family Medical History: Cancer General Exam Limitations: no limitations General appearance: alert, in no apparent distress Head exam: Present: atraumatic, normocephalic, normal inspection Eye exam: Present: normal appearance, PERRL, EOMI. Absent: scleral icterus, conjunctival injection, periorbital swelling ENT exam: Present: normal exam, mucous membranes moist Neck exam: Present: normal inspection. Absent: tenderness, meningismus, lymphadenopathy Respiratory exam: Present: normal lung sounds bilaterally. Absent: respiratory distress, wheezes, rales, rhonchi, stridor Cardiovascular Exam: Present: regular rate, normal rhythm, normal heart sounds. Absent: systolic murmur, diastolic murmur, rubs, gallop, clicks GI/Abdominal exam: Present: soft, normal bowel sounds. Absent: distended, tenderness, guarding, rebound, rigid Extremities exam: Present: tenderness (To palpation of the left knee. There is mild associated swelling with no appreciable joint effusion. She does have tenderness at full extension. 2+ DP and PT pulses. Compartments are soft. No overlying ecchymosis. Patient able to flex and extend at the knee), normal capillary refill. Absent: pedal edema, joint swelling, calf tenderness Back exam: Present: normal inspection Neurological exam: Present: alert, oriented X3, CN II-XII intact Psychiatric exam: Present: normal affect, normal mood Skin exam: Present: warm, dry, intact, normal color. Absent: rash Course Vital Signs 10/19/24 10/19/24 17:28 20:22 Temperature 97.7 F 97.5 F L Pulse Rate 87 91 Respiratory 20 18 Rate Blood Pressure 180/85 140/84 O2 Sat by Pulse 97 98 Oximetry Medical Decision Making - Medical Decision Making Was pt. sent in by a medical professional or institution (, BRIAN, MOTOR ROOM CONTROLLER, urgent care, hospital, or halfway...) When possible be specific @ -No Did you speak to anyone other than the patient for history (EMS, parent, family, police, friend...)? What history was obtained from this source @ -No Did you review nursing and triage notes (agree or disagree)? Why? @ -I reviewed and agree with nursing and triage notes Were old charts reviewed (outside hosp., previous admission, EMS record, old EKG, old radiological studies, urgent care reports/EKG's, halfway records)? Report findings @ -No old charts were reviewed Differential Diagnosis (chest pain, altered mental status, abdominal pain women, abdominal pain men, vaginal bleeding, weakness, fever, dyspnea, syncope, headache, dizziness, GI bleed, back pain, seizure, CVA, palpatations, mental health, musculoskeletal)? @ -Differential Musculoskeletal Muscular strain, contusion, ligament sprain, fracture, arthritis, septic arthritis, bursitis, cellulitis, muscle spasm, nerve compression, DVT, arterial occlusion, herpes zoster, electrolyte abnormality, tumor.... This is not meant to be in all inclusive list EKG interpreted by me (3pts min.). @ -Not done X-rays interpreted by me (1pt min.). @ -Yes and demonstrates no acute fracture CT interpreted by me (1pt min.). @ -None done U/S interpreted by me (1pt. min.). @ -None done What testing was considered but not performed or refused? (CT, X-rays, U/S, labs)? Why? @ -None What meds were considered but not given or refused? Why? @ -None Did you discuss the management of the patient with other professionals (professionals i.e. , PA, MOTOR ROOM CONTROLLER, lab, RT, psych nurse, social worker palliative care, medical specialist, teacher, seismology technical officer, heel caser)? Give summary @ -No Was smoking cessation discussed for >3mins.? @ -No Was critical care preformed (if so, how long)? @ -No Were there social determinants of health that impacted care today? How? (Homelessness, low income, unemployed, alcoholism, drug addiction, transportation, low edu. Level, literacy, decrease access to med. care, shelter, rehab)? @ -No Was there de-escalation of care discussed even if they declined (Discuss DNR or withdrawal of care, Hospice)? DNR status @ -No What co-morbidities impacted this encounter? (DM, HTN, Smoking, COPD, CAD, Cancer, CVA, ARF, Chemo, Hep., AIDS, mental health diagnosis, sleep apnea, morbid obesity)? @ -None Was patient admitted / discharged? Hospital course, mention meds given and route, prescriptions, significant lab abnormalities, going to OR and other pertinent info. @ -Upon arrival patient seen and evaluated in bed 30. Thorough history and physical exam was performed. X-ray was performed. Patient was provided with a Tylenol 3. X-ray demonstrates no acute fracture. I am concerned for internal derangement. Patient will be placed in a knee immobilizer. I did provide her with a starter pack for Tylenol 3's. She will be discharged home. Requesting to follow-up with Dr. Byrne as he has completed previous orthopedic surgery on her. Patient is to not weight-bear until evaluated by orthopedic surgeon. Return for any new or worsening symptoms. Patient agreeable plan was discharged in stable condition Undiagnosed new problem with uncertain prognosis? @ -No Drug Therapy requiring intensive monitoring for toxicity (Heparin, Nitro, Insulin, Cardizem)? @ -No Were any procedures done? @ -No Diagnosis/symptom? @ -Acute left knee pain, suspected internal derangement Acute, or Chronic, or Acute on Chronic? @ -Acute Uncomplicated (without systemic symptoms) or Complicated (systemic symptoms)? @ -Uncomplicated Side effects of treatment? @ -No Exacerbation, Progression, or Severe Exacerbation? @ -No Poses a threat to life or bodily function? How? (Chest pain, [place], NC, pneumonia, PE, COPD, DKA, ARF, appy, cholecystitis, CVA, Diverticulitis, Homicidal, Suicidal, threat to staff... and all critical care pts) @ -No Disposition Clinical Impression: Left knee pain Disposition: HOME SELF-CARE Condition: Stable Instructions (If sedation given, give patient instructions): Knee Pain (ED) Additional Instructions: Please use the pain medications as instructed. Weight-bear as tolerated. Wear the knee immobilizer. Follow-up with the orthopedic doctor for further evaluation Prescriptions: Acetaminophen-Codeine 300-30mg [Tylenol #3] 1 tab PO Q6HR PRN #12 tablet PRN Reason: pain Is patient prescribed a controlled substance at d/c from ED?: Yes When asked, does pt state using other controlled substances?: No If prescribed controlled substance>3 days was MAPS reviewed?: Prescribed <3 Days If opioid is for acute pain is fill amount 7 days or less?: Yes If Rx opioid, was Start Talking consent form obtained?: Yes Referrals: Puma Del Rosario DO [Primary Care Provider] - 1-2 days Roel Ling MD [STAFF PHYSICIAN] - 1-2 days Time of Disposition: 20:09
[2024-10-19] MEDS: ACET/COD 300 MG/30 MG STARTER PACK 6 TAB BTL PO STA (20:12)
[2024-10-19 20:23] VITALS: BP 140/84; PULSE 91; RESP 18; TEMP 97.5
== END 2024-10-19 20:23 | disposition home or self-care (01) ==
LOC: EC 17:27
DX: M25.562 Pain in left knee (principal); Z88.2 Allergy status to sulfonamides; X50.9XXA Other and unspecified overexertion or strenuous movements or postures, initial encounter
CPT/HCPCS: 99283

== ENCOUNTER → 2024-11-03 | Outpatient (CLI) | payer BC ==
[2024-11-03 12:06] VITALS: BP 175/101; PULSE 76; RESP 16; TEMP 98.1
--- NOTE | 2024-11-03 12:27 | P.PROGSL ---
Subjective DATE: 11/03/2024 FOLLOW UP VISIT. Patient with obstructive sleep apnea hypopnea syndrome return to sleep center for follow-up visit. Information from previous visit have been reviewed. This is first visit after patient received new CPAP unit AirSense 11. Patient is using PAP equipment every night for the whole night, getting PAP supplies in time. The patient does not have significant problems with the mask, PAP unit and humidification. Beaver sleepiness scale is 3, which is normal. I checked information from PAP unit. PAP unit pressure 5-15, average 8.7 cm H2O. Usage is 100% for more then 4 hours, average 8.5 hours per night. Leak is perfect 1.3 l/m. Apnea Hypopnea Index is 1.2, which is normal. MEDICATIONS have been reviewed, please see below. During physical exam: GENERAL: A pleasant patient without any distress. VITAL SIGNS: Please see below, weight is 235 lbs. HEENT: PERRLA, EOMI.low position of soft palate, Mallapati 4 . NECK: Supple. No JVD. LUNGS: Clear to percussion and to auscultation. Good air exchange. No wheezing or rhonchi. HEART: S1, S2 regular. ABDOMEN: Soft and nontender.[] EXTREMITIES: No clubbing or cyanosis. SOFTWARE RECRUITER: Awake, alert, and oriented x3. No focal deficit. Impressions: 1. Obstructive sleep apnea-hypopnea syndrome. Patient demonstrated great compliance with treatment, benefiting from treatment. 2. Hypertension. 3. Seasonal allergy. 4. Obesity, BMI 42. 5. Low back problems. 6. Status post partial hysterectomy. 7. History of out of dream movements in the past, presently no problems. 8. Status post surgical treatment for carpal tunnel syndrome. 9. Status post breast reduction. Plan: 1. Continue using PAP equipment every night for the whole night. 2. Sleep hygiene with regular time in bed for at least 7.5-8 hours 3. PAP unit should stay lower then position of the head. 4. Advised patient to remove all remaining water from humidifier canister daily and make it dry after each usage. Refill canister with fresh distilled water before each usage. 5. Watching and losing weight. 6. Precautions related to driving. No driving if feel any sleepiness. 7. I will maintain prescription for PAP supplies including mask, tube, filters. 8. Follow up visit in 8 months or earlier if patient has any problems. Thank you very much for allowing me to participate in the management of your patient. Tono Torres MD, PhD, FAASM. Diplomat of [place] [employer], Sleep Medicine Board by [employer] [facility] [place] Objective - Vital Signs Vital Signs: Vital Signs Temp 98.1 F 11/03/24 11:49 Pulse 76 11/03/24 11:49 Resp 16 11/03/24 11:49 BP 175/101 11/03/24 11:49 Pulse Ox 96 11/03/24 11:49 FiO2 Intake & Output 11/02/24 11/03/24 11/03/24 18:59 06:59 18:59 Weight 106.594 kg Home Medications: Home Medications Medication Instructions Recorded Confirmed Type Cetirizine HCl [Zyrtec] 10 mg PO QAM 07/22/22 07/14/24 History Cholecalciferol (Vitamin D3) 5,000 unit PO DAILY 07/22/22 07/21/23 History [Vitamin D3 (125 MCG = 5,000 IU)] Garlic 1,000 mg PO DAILY 07/22/22 07/21/23 History Glucos Sul 2Kcl/MSM/Chond/C/Mn 1 cap PO DAILY 07/22/22 07/21/23 History [Glucosamine Chondroitin Cap] Cyclobenzaprine [Flexeril] 5 mg PO HS 04/03/23 07/21/23 History Estrogens, Conjugated [Premarin] 0.3 mg PO QAM 04/03/23 07/14/24 History Ibuprofen [Motrin Ib] 600 - 800 mg PO Q8H PRN 04/03/23 07/21/23 History Telmisartan [Micardis] 80 mg PO HS 04/03/23 07/14/24 History carvediloL [Coreg] 6.25 mg PO QAM 04/03/23 07/21/23 History carvediloL [Coreg] 12.5 mg PO QAM 04/03/23 07/14/24 History Calcium 1,000 mg PO DAILY 05/22/23 07/21/23 History L.acidoph,Paracasei, B.lactis 1 each PO DAILY 05/22/23 07/21/23 History [Probiotic] Multivitamins, Thera [Multivitamin 1 tab PO DAILY 05/22/23 07/21/23 History (formulary)] Semaglutide [Wegovy] 0.5 mg SQ FR 05/22/23 07/21/23 History Acetaminophen Tab [Tylenol] 500 - 1,000 mg PO HS 07/14/23 07/21/23 History Apixaban [Eliquis] 2.5 mg PO BID #60 tab 07/22/23 Rx HYDROcodone/APAP 7.5-325MG [Kermit 1 - 2 each PO Q6HR PRN #32 tab 07/22/23 Rx 7.5] Sennosides/Docusate Sodium [Senna 1 each PO DAILY #20 capsule 07/22/23 Rx Plus 8.6-50 mg Softgel] Phentermine HCl [Adipex P] 15 mg PO DAILY 07/14/24 07/14/24 History Acetaminophen-Codeine 300-30mg 1 tab PO Q6HR PRN #12 tablet 10/19/24 Rx [Tylenol #3]
== END ==
LOC: 3 N SLEEP 11:25
PROVIDERS: ATTEND Internal Medicine
DX: G47.33 Obstructive sleep apnea (adult) (pediatric) (principal); I10 Essential (primary) hypertension; Z90.710 Acquired absence of both cervix and uterus; Z98.890 Other specified postprocedural states; Z88.2 Allergy status to sulfonamides
CPT/HCPCS: 99212

== ENCOUNTER → 2024-12-06 | Outpatient (CLI) | payer BC ==
--- NOTE | 2024-12-06 18:43 | CA ---
Transthoracic Echo Report Name: Cindy Odonnell Age: 54 Gender: F : 1970 Exam Date: 12/06/2024 16:25 Exam Location: [place] [facility] Ht (in): 63 Wt (lb): 237 Ordering Physician: Krishan Melgoza DO Attending/Referring Phys: Krishan Melgoza DO Shrink Pit Supervisor Saskia Luz RDCS Procedure CPT: Indications: I20.9 ANGINA PECTORIS, UNSPECIFIED Cardiac Hx: Technical Quality: Fair Contrast 1: Total Dose (mL): Contrast 2: Total Dose (mL): MEASUREMENTS (Male / Female) Normal Values 2D ECHO LV Diastolic Diameter PLAX 4.8 cm 4.2 - 5.9 / 3.9 - 5.3 cm LV Systolic Diameter PLAX 3.4 cm IVS Diastolic Thickness 1.8 cm 0.6 - 1.0 / 0.6 - 0.9 cm LVPW Diastolic Thickness 1.0 cm 0.6 - 1.0 / 0.6 - 0.9 cm LV Relative Wall Thickness 0.6 LVOT Diameter 2.4 cm LV Diastolic Volume MOD BP 105.5 cm??? 67 - 155 / 56 - 104 cm??? LV Systolic Volume MOD BP 43.1 cm??? 22 - 58 / 19 - 49 cm??? LV Ejection Fraction MOD BP 59.1 % >= 55 % LV Cardiac Index MOD BP 1889.0 cm???/min???m??? LV Diastolic Volume MOD 4C 108.8 cm??? LV Systolic Volume MOD 4C 46.1 cm??? LV Ejection Fraction MOD 4C 57.6 % LV Cardiac Index MOD 4C 1900.1 cm???/min???m??? LV Diastolic Length 4C 8.4 cm LV Systolic Length 4C 6.3 cm LV Diastolic Volume MOD 2C 98.4 cm??? LV Systolic Volume MOD 2C 38.8 cm??? LV Ejection Fraction MOD 2C 60.6 % LV Cardiac Index MOD 2C 1804.9 cm???/min???m??? LV Diastolic Length 2C 8.1 cm LV Systolic Length 2C 6.8 cm LA Volume 61.5 cm??? 18 - 58 / 22 - 52 cm??? LA Volume Index 27.4 cm???/m??? 16 - 28 cm???/m??? Ascending Aorta Diameter 3.5 cm DOPPLER AV Peak Velocity 186.5 cm/s AV Peak Gradient 13.9 mmHg AV Mean Velocity 119.3 cm/s AV Mean Gradient 6.6 mmHg AV Velocity Time Integral 34.1 cm LVOT Peak Velocity 118.8 cm/s LVOT Peak Gradient 5.6 mmHg LVOT Velocity Time Integral 23.8 cm LVOT Stroke Volume 106.4 cm??? LVOT Stroke Volume Index 51.2 ml/m??? LVOT Cardiac Index 3222.5 cm???/min???m??? AV Area Cont Eq vti 3.1 cm??? AV Area Cont Eq pk 2.9 cm??? MV Area PHT 4.7 cm??? Mitral E Point Velocity 74.4 cm/s Mitral A Point Velocity 79.7 cm/s Mitral E to A Ratio 0.9 MV Deceleration Time 161.6 ms PV Peak Velocity 93.9 cm/s PV Peak Gradient 3.5 mmHg FINDINGS Left Ventricle Left ventricular ejection fraction is estimated at 55-60 %. Severely increased septal wall thickness. Left ventricular cavity size normal. Normal left ventricular systolic function with no obvious regional wall motion abnormalities. Right Ventricle Normal right ventricular size and function. Unable to estimate the right ventricular systolic pressure. Right Atrium Normal right atrial size. Left Atrium Mildly increased left atrial volume. Mitral Valve Structurally normal mitral valve. No evidence for mitral valve prolapse. No mitral stenosis. Mild mitral regurgitation. Aortic Valve Aortic valve not well visualized. No aortic stenosis. Trace aortic regurgitation. Tricuspid Valve Structurally normal tricuspid valve. No tricuspid stenosis. Trace tricuspid regurgitation. Pulmonic Valve Pulmonic valve not well visualized. No pulmonic stenosis. No pulmonic regurgitation. Pericardium No pericardial effusion. Aorta Normal size aortic root and proximal ascending aorta. CONCLUSIONS Technically difficult study. Normal left ventricular size and systolic function with asymmetric septal hypertrophy Limited Doppler study with mild mitral regurgitation Previewed by: Dr. Lidia Ambrose MD (Electronically Signed) Final Date: 06 December 2024 18:42
== END | disposition home or self-care (01) ==
LOC: RADECHMAIN 16:08
PROVIDERS: ATTEND Family Medicine
DX: I34.0 Nonrheumatic mitral (valve) insufficiency (principal); I20.9 Angina pectoris, unspecified
CPT/HCPCS: 93306

== ENCOUNTER → 2024-12-13 | Outpatient (CLI) | payer BC ==
--- NOTE | 2024-12-13 12:14 | CA ---
Exercise Stress Test Report Name: Cindy Odonnell Exam Date: 12/13/2024 09:00 Exam Location: [facility] Ht (in): 63 Wt (lb): 237 BSA: 2.08 Ordering Phys: Krishan Melgoza DO Referring Phys: Krishan Melgoza DO Technologist: HECTOR ZAMBRANO Age: 54 Gender: F : 1970 Procedure CPT: Indications: I20.9 ANGINA PECTORIS, UNSPECIFIED ICD-10 Codes: Patient History: Medications: TELMISARTAN, ZYRTEC, AREMARIN, COREG, ALVIOSAMINE, CALCIUM, Meds past 24 hrs: Pretest Chest Pain: STRESS TEST Rohit Protocol Exercise Duration (min:sec): 04:[address] Depressions (mm): Angina Score: Truong Score: Resting HR (bpm): 77 Peak HR (bpm): 142 Resting BP (mmHg): 166 / 87 Peak BP (mmHg): 257 / 93 MPHR: 164 Target HR: 139 % MPHR: 87 METS: 6.5 Total Dose: Peak Dose: Atropine: Double Product: 00847 BP Response: Stress Termination: Chest Pain Stress Symptoms: NO SYMPTOMS Stress Summary: ECG ANALYSIS Resting ECG: Stress ECG: CONCLUSIONS Patient underwent exercise stress EKG with a Rohit protocol treadmill stress test. Patient exercised into Stage 2 for a total of 4 minutes reaching a total of 6.5 METS. Patient's maximum heart rate was 142 which represented 86% age-predicted maximum heart rate. Stress EKG findings: At baseline patient's EKG showed normal sinus rhythm, normal axis, no significant ST or T wave abnormalities. At peak exercise, EKG showed no change from baseline. Conclusions: 1. Normal EKG response to exercise without evidence of inducible ischemia. 2. Fair exercise capacity. Dr. Rony Wilson DO (Electronically Signed) Final Date: 13 December 2024 12:13
== END | disposition home or self-care (01) ==
LOC: RADNMMAIN 08:36
PROVIDERS: ATTEND Family Medicine
DX: I20.9 Angina pectoris, unspecified (principal)
CPT/HCPCS: 93017

== ENCOUNTER → 2025-04-11 | Outpatient (CLI) | payer BC ==
[2025-04-11 11:33] LABS: Basophils # (A) 0.09 10*3/uL (0.00-0.10); Basophils % (A) 1.1 %; Eosinophils # (A) 0.27 10*3/uL (0.04-0.35); Eosinophils % (A) 3.2 %; HCT 38.5 % (37.2-46.3); HGB 12.8 g/dL (12.0-15.0); Lymphocytes # (A) 1.31 10*3/uL (0.90-5.00); Lymphocytes % (A) 15.7 %; MCH 29.6 pg (27.0-32.0); MCHC 33.2 g/dL (32.0-37.0); MCV 88.9 fL (80.0-97.0); Monocytes # (A) 0.58 10*3/uL (0.20-1.00); Monocytes % (A) 7.0 %; Neutrophils # (A) 6.04 10*3/uL (1.80-7.70); Neutrophils % (A) 72.5 %; Platelet Count 372 10*3/uL (140-440); RBC 4.33 10*6/uL (4.10-5.20); RDW 12.7 % (11.5-14.5); WBC 8.33 10*3/uL (4.50-10.00)
[2025-04-11 15:39] LABS: Ferritin 139.0 ng/mL (10.0-291.0); Iron 51.0 UG/DL (50-170); Total Iron Binding Capacity 344.0 UG/DL (228-460); Vitamin B12 624.0 pg/mL (200.0-944.0)
== END | disposition home or self-care (01) ==
LOC: LABWHC1 10:45
PROVIDERS: ATTEND Internal Medicine
DX: D64.9 Anemia, unspecified (principal)
CPT/HCPCS: 36415; 82607; 82728; 82746; 83540; 83550; 84165; 85025; 85045; 86334